=== PATIENT | female | born 1970 | race Caucasian/White ===

== ENCOUNTER → 2019-08-24 10:46 | Outpatient (CLI) | payer BC, SELFPAY ==
--- NOTE | ~2019-08-24 | MR_ITS ---
EXAMINATION: MR cervical spine wo con DATE: 08/24/2019 11:37 INDICATION: Cervical radiculopathy. TECHNIQUE: Magnetic resonance imaging (MRI) of the cervical spine was performed without intravenous c ontrast. Sequences included sagittal T2-weighted FSE, sagittal T2-weighted FS FSE, sagittal T1-weight ed FSE, axial MERGE, and axial T2-weighted FSE. COMPARISON: Cervical spine MRI 04/13/2012 FINDINGS: There is kyphosis of cervical spine. There is 2 mm retrolisthesis of C4 on C5. Vertebral boni dy heights are normal. There is a hemangioma in T2 vertebral body. There is moderately decreased disc height at C4-C5 and severely decreased disc height at C5-C6 and C6-C7. The spinal cord signal intens ity is normal. The following disc levels are specifically discussed: C2-C3: The disc does not extend beyond the endplate margin. There is mild left uncovertebral joint os teoarthritis. There is mild bilateral facet joint osteoarthritis. There is mild left neural foraminal stenosis. There is no central canal stenosis. C3-C4: The disc does not extend beyond the endplate margin. There is mild bilateral uncovertebral campbell nt osteoarthritis. There is no facet joint osteoarthritis. There is no neural foraminal stenosis. The re is no central canal stenosis. C4-C5: The disc is bulging. There is severe bilateral uncovertebral joint osteoarthritis. There is no facet joint osteoarthritis. There is moderate right and mild left neural foraminal stenosis. There i s mild central canal stenosis. C5-C6: The disc is bulging. There is severe bilateral uncovertebral joint osteoarthritis. There is mi ld right and moderate left facet joint osteoarthritis. There is mild right and moderate left neural f oraminal stenosis. There is mild central canal stenosis. C6-C7: The disc is bulging. There is severe bilateral uncovertebral joint osteoarthritis. There is mi ld bilateral facet joint osteoarthritis. There is mild bilateral neural foraminal stenosis. There is mild central canal stenosis. C7-T1: There is a left central extrusion. There is no uncovertebral joint osteoarthritis. There is mi ld bilateral facet joint osteoarthritis. There is no neural foraminal stenosis. There is mild central canal stenosis. IMPRESSION: 1. Severe cervical spondylosis, worsened from 04/13/2012. Reviewed, dictated and finalized at location A.
== END ==
PROVIDERS: Visit Provider Nurse Practitioner Family
DX: M47.22 Other spondylosis with radiculopathy, cervical region (principal)
CPT/HCPCS: 72141

== ENCOUNTER 2020-05-21 13:36 | Inpatient (IN) | payer SELFPAY ==
[2020-05-21] VITALS (11 sets, daily range): BP systolic 104–132; BP diastolic 56–81; PULSE 97–115; RESP 13–22; TEMP 36.7–37.1; O2SAT 94–100; BMI 30.6
--- NOTE | ~2020-05-21 | XR_ITS ---
EXAMINATION: XR chest 1V portable DATE: 05/21/2020 14:07 INDICATION: Transient alteration of awareness. TECHNIQUE: A single frontal view of the chest was obtained. COMPARISON: None. FINDINGS: A calcified left lung nodule is consistent with old granulomatous disease. No pleural effus ion or pneumothorax. The heart size is normal. IMPRESSION: 1. No acute cardiopulmonary disease. Reviewed, dictated and finalized at location A.
--- NOTE | 2020-05-21 13:45 | PC.NURSE ---
Per [place] - pharmacist w/ poison control, the peak for the consumed medication is quick, and should be past. Pt drowsy, alert to verbal stimuli. Answers questions appropriately. Per Poison control, watch blood pressure, monitor vitals, this requires symptomatic and supportive care. Will call back to ck on pt, no sheets of information provided at this time.
--- NOTE | 2020-05-21 13:46 | ECG_ITS ---
Measurements Intervals [place] Rate: 108 P: 52 IA: 144 QRS: 48 QRSD: 98 T: 71 QT: 346 QTc: 465 Interpretive Statements SINUS TACHYCARDIA NONSPECIFIC T-WAVE ABNORMALITY- ANT/HIGH LAT LEADS BASELINE ARTIFACT- I, II, III, AVR, AVL, AVF, V1-V6 ABNORMAL ECG Electronically Signed On 05-21-2020 14:18:24 CDT by Donny Dominguez D.O.
--- NOTE | 2020-05-21 13:48 | ED.OVERDOSE ---
HPI - Overdose General Chief Complaint: Overdose Stated Complaint: overdose Source: family, EMS and RN notes reviewed Mode of arrival: EMS History of Present Illness HPI Narrative: Patient is 50 years old white female brought to the emergency room by ambulance because of drug overdose. According to the family that the patient been complaining of major depression lately and her wishes to . This morning was doing okay, within 1 hour prior to arrival to the emergency room. Patient took unknown number of pills from 90 pills bottle of Requip, Patient should have 57 pills in the bottle but currently have 74 pills . Obviously patient does not take her medication, and if she did not have any pill since had her prescription done ,the total number of pills been taking today will be 16 pills maximum. Patient was awake when the ambulance arrived to her house, currently is sleepy, and responding to painful stimulation. Related Data Allergies Allergy/AdvReac Type Severity Reaction Status Date / Time No Known Allergies Allergy Verified 10/01/17 08:37 Review of Systems Review of Systems: ROS unobtainable: Yes unobtainable due to medical condition PMFSH Social History Social History Substance use type: painkillers and prescription drug Gender identity (if verbalized by the patient): Female Exam Narrative: Exam Narrative: General appearance: Well-developed, well-nourished, sleepy, responding to painful stimulation, at the bedside Skin: Normal color Head: Normocephalic, nontraumatic Eyes: Clear conjunctiva ENT: Oropharynx normal, ears normal, nose normal Neck: Supple, nontender Chest and respiratory: Airway patent, no respiratory distress, no accessory muscle use Heart: Regular rate/rhythm Abdomen: Soft, nontender, no organomegaly, quiet bowel sounds Vascular: Normal peripheral pulses, normal capillary refill. Musculoskeletal: Normal range of motion, nontender back Neurologic: Responding to painful stimulation Course Course Emergency Course: Stable Vital Signs Vital signs: Vital Signs Respiratory Rate 14 05/21/20 13:48 Temperature 36.7 C 05/21/20 14:16 Pulse Rate 103 H 05/21/20 15:00 Respiratory Rate 21 H 05/21/20 15:00 Blood Pressure 127/80 05/21/20 15:00 Pulse Oximetry 94 05/21/20 15:00 MDM - Overdose MDM Narrative Medical decision making narrative: Patient presents with suicidal attempt, drug overdose. Labs, chest x-ray, EKG ordered. Further plan to follow Differential Diagnosis Differential diagnosis: Likely suicide attempt by multiple drug overdose, drug overdose and other (Major depression) Lab Data Result diagrams: 05/21/20 14:06 05/21/20 14:06 Labs: Lab Results 05/21/20 05/21/20 05/21/20 Range/Units 14:06 14:06 14:06 WBC 5.8 (4.5-10.0) K/mm3 RBC 4.43 (4.2-5.4) M/mm3 Hgb 13.3 (12.0-15.0) g/dL Hct 40.2 (37.0-47.0) % MCV 90.7 (80-100) fl MCH 30.0 (26-34) pg MCHC 33.1 (32-36) g/dl RDW 12.9 (11.5-14.5) % Plt Count 301 (150-375) k/mm3 MPV 9.7 (7.4-10.4) fl Immature Gran % (Auto) 0.5 (0-0.5) % Neut % (Auto) 57.8 (45.5-73.1) % Lymph % (Auto) 31.1 (18.3-44.2) % [place] % (Auto) 8.0 (2.6-8.5) % Eos % (Auto) 1.0 (0-4.4) % Baso % (Auto) 1.6 H (0.2-1.2) % Lymph # (Auto) 1.79 (0.9-3.2) K/mm3 [place] # (Auto) 0.5 (0.1-0.6) K/mm3 Eos # (Auto) 0.1 (0-0.3) K/mm3 Baso # (Auto) 0.1 (0.0-0.1) K/mm3 Abs Immat Gran (auto) 0.03 (0.00-0.031) K/mm3 Absolute Neuts (auto) 3.3 (1.3-6.7) K/mm3 Absolute Nucleated RBC 0.0 (0.0-0.012) K/mm3
[2020-05-21] MEDS: SODIUM CHLORIDE 0.9% IV 1,000 ML 999 ML IV CONT ×2 (13:53→15:52)
[2020-05-21 14:03] LABS: Alveolar/Arterial O2 Gradient 27.1 mmHg; Base Excess ABG 1.8 mEq/l (+/-2.0); Fractional Inspired Oxygen 21 %; HCO3 ABG 27.4 mEq/l (22.0-26.0); Oxygen Content ABG 18.3 %vol (16.0-22.0); Oxygen Saturation ABG 92.9 % (95.0-100.0); Oxyhemoglobin 92.1 % THb (90.0-100.0); PCO2 ABG 46.8 mmHg (35.0-45.0); PO2 ABG 66.6 mmHg (80.0-100.0); PO2 FiO2 Ratio Arterial Blood 3.17 %; Total Hemoglobin 14.1 g/dL (12.0-18.0); pH ABG 7.386 (7.350-7.450)
[2020-05-21 14:04] LABS: Device ROOM AIR; Modified Allen's Test Pass; Site Drawn LEFT RADIAL
[2020-05-21 14:25] LABS: Basophils Absolute Auto 0.1 K/mm3 (0.0-0.1); Basophils Percent Auto 1.6 % (0.2-1.2); Eosinophils Absolute Auto 0.1 K/mm3 (0-0.3); Hematocrit 40.2 % (37.0-47.0); Hemoglobin 13.3 g/dL (12.0-15.0); Immature Granulocyte Absolute 0.03 K/mm3 (0.00-0.031); Immature Granulocyte Percent A 0.5 % (0-0.5); Lymphocytes Absolute Auto 1.79 K/mm3 (0.9-3.2); Lymphocytes Percent Auto 31.1 % (18.3-44.2); Mean Corpuscular HGB Conc 33.1 g/dl (32-36); Mean Corpuscular Volume 90.7 fl (80-100); Mean Platelet Volume 9.7 fl (7.4-10.4); Monocytes Absolute Auto 0.5 K/mm3 (0.1-0.6); Neutrophils Absolute Auto 3.3 K/mm3 (1.3-6.7); Neutrophils Percent Auto 57.8 % (45.5-73.1); Platelet Count Result 301 k/mm3 (150-375); Red Blood Count 4.43 M/mm3 (4.2-5.4); Red Cell Distribution Width 12.9 % (11.5-14.5); White Blood Count 5.8 K/mm3 (4.5-10.0)
[2020-05-21 14:36] LABS: Acetaminophen < 10 ug/mL (10-30); Ethanol 168 mg/dL (<10); Salicylate < 1.0 mg/dL (2-20)
[2020-05-21 14:41] LABS: INR 0.9
[2020-05-21 14:42] LABS: Partial Thromboplastin Time 26.7 SECONDS (22.3-36.8)
[2020-05-21 14:49] LABS: Alanine Aminotransferase 16 U/L (4-35); Alkaline Phosphatase 59 U/L (38-126); Anion Gap 5 mmol/L (8-16); Aspartate Amino Transferase 34 U/L (14-36); Bilirubin,Total < 0.1 mg/dL (0.2-1.3); Blood Urea Nitrogen 9 mg/dL (7-17); Calcium 8.3 mg/dL (8.4-10.2); Carbon Dioxide 34 mmol/L (22-30); Chloride 106 mmol/L (98-107); Estimated CRCL calculation 57 ml/min; Estimated Glomerular Filt Rate 58; Glucose 61 mg/dL (65-105); Magnesium 1.5 mg/dL (1.6-2.3); Phosphorus 1.8 mg/dL (2.5-4.5); Potassium 3.1 mmol/L (3.4-5.0); Sodium 145 mmol/L (137-145)
[2020-05-21 14:54] LABS: Add Urine Microscopic? NO; Appearance Urine Clear (Clear); Bilirubin Urine Negative (Negative); Blood Urine Negative (Negative); Color Urine Yellow (Yellow); Glucose Urine UA Negative (Negative); Ketones Urine Negative (Negative); Leukocyte Esterase Ur Negative LEU/UL (Negative); Nitrate Urine Negative (Negative); Protein Urine Negative (Negative); Specific Grav Ur 1.009 (1.001-1.035); Urobilinogen Urine Negative mg/dL (<2.0)
[2020-05-21 15:00] LABS: Creatine Kinase 259 U/L (30-135)
[2020-05-21 15:10] LABS: Amphetamine Screen Urine Negative (Negative); Barbiturate Screen Urine Negative (Negative); Benzodiazepines Screen Urine Negative (Negative); Cannabinoid Screen Urine Negative (Negative); Cocaine Screen Urine Negative (Negative); Methadone Screen Urine Negative (Negative); Opiate Screen Urine Negative (Negative); Phencyclidine Screen Urine Negative (Negative)
[2020-05-21] MEDS: POTASSIUM CHLORIDE 20 MEQ PACKET (FOR LIQUID) 40 MEQ PO (15:53)
--- NOTE | 2020-05-21 16:09 | PC.NURSE ---
Received call from Anai from poison control requesting update. Reviewed EKG, medications given, and VS.
[2020-05-21 16:39] LABS: Glucose Point of Care 108 (65-105)
[2020-05-21] MEDS: SODIUM CHLORIDE 0.9% IV 1,000 ML 150 ML IV CONT ×2 (17:10→23:57)
--- NOTE | 2020-05-21 17:10 | PC.NURSE ---
This patient, Marcella Loyd, was admitted to Intensive Care Unit-6. Patient/family oriented to hospital policies and general routines including ID bracelet, bed and alarms, visiting hours, pain management, procedures, bathroom and other care routines, personal items, smoking policy, room service/diet, and visiting hours. Information on how to activate the Rapid Response Team has been discussed. Patient/Family are encouraged to report perceived risks to care and to ask questions if they do not understand what they are told or what they should do.
--- NOTE | 2020-05-21 18:16 | PM.IMHP ---
H&P: HPI History of Present Illness Date/Time: 05/21/20 18:16 this is 50-year-old female patient who has a history of depression. The patient recently lost her job and has been very depressed over the situation. The patient stated that she drinks some vodka today and just wanted to take the medication to relax. Her child found her unresponsive today. She Took unknown number Requip. The patient was complaining of depression and was wishing to . Apparently the patient took the overdose approximately 1 hour prior to coming to the emergency room. The patient was awake when the ambulance arrived her house but she is very sleepy and responding to the painful stimuli. Her is currently at the bedside and the patient is in ICU. Tylenol level was less than 10. The patient stated that she takes Ambien to help her sleep at night. But she denies taking any Ambien. She said she only took 1 Lexapro today. The patient tells me that she has not been to any inpatient psychiatric treatment in the past. Chest x-ray was read as no acute cardiopulmonary disease. Patient is being admitted to inpatient ICU date of service is 05/21/2020. Chief Complaint: Overdose Review of Systems Review of Systems: All systems reviewed & are unremarkable except as noted in HPI and below Constitutional: Constitutional: Reports as per HPI and Reports no additional constitutional complaints Eyes: Eyes: Reports as per HPI and Reports no additional eye complaints ENT: Reports system reviewed and no additional complaints, except as documented and Reports Normal hearing present Cardiovascular: Cardiovascular: Reports no additional cardiovascular complaints Respiratory: Respiratory: Reports no additional respiratory complaints and Reports no additional respiratory complaints Gastrointestinal: Gastrointestinal: Reports as per HPI and Reports no additional gastrointestinal complaints Musculoskeletal: Musculoskeletal: Reports no additional musculoskeletal complaints Integumentary/Breasts: Skin/Breast: Reports system reviewed and no additional complaints, except as docu and Reports as per HPI Neurologic: Reports system reviewed and no additional complaints, except as documented, Reports as per HPI and Reports Normal hearing present Psychiatric: Psychiatric: Reports no additional psychiatric complaints and Reports as per HPI Endocrine: Endocrine: Reports no additional endocrine complaints Hematologic/Lymphatic: Hematologic/Lymphatic: Reports no additional hematologic/lymphatic complaints Allergic/Immunologic: Allergic/Immunologic: Reports no additional allergic/immunologic complaints [facility] Past Medical History Medical History (Updated 05/21/20 @ 18:20 by Alee Bains NP) Depression Insomnia Restless leg syndrome Surgical History Surgical History (Updated 05/21/20 @ 18:20 by Alee Bains NP) No pertinent past surgical history Family History Family History (Updated 05/21/20 @ 18:21 by Alee Bains NP) Father Osteoarthritis Mother Osteoarthritis Social History Social History (Updated 05/21/20 @ 18:22 by Alee Bains NP) Social History: The patient recently lost her job so she is unemployed. The patient is . She desires to have her is a durable power attorney general for healthcare. The patient is a full code. She has 2 children appoint a girl. Lifelong nonsmoker. The patient states that she rarely drinks but she had some vodka today. No marijuana or illicit drug. She tried CBD in the past and does nothing for her. Smoking status: Never smoker Alcohol intake: current Substance use type: painkillers and prescription drug Other substance usage details: RSO oil Gender identity (if verbalized by the patient): Female Spiritual care concerns: No Meds Home Medications and Allergies Home Medications Medication Instructions Recorded Confirmed Type amitriptyline 100 mg PO HS 05/21/20 05/21/20 Hi
[2020-05-22] VITALS (7 sets, daily range): BP systolic 117–164; BP diastolic 67–101; PULSE 103–118; RESP 11–22; TEMP 36.8–37.1; O2SAT 96–99
[2020-05-22 00:03] LABS: Glucose Point of Care 97 (65-105)
[2020-05-22 05:12] LABS: Alanine Aminotransferase 15 U/L (4-35); Albumin Level 3.1 g/dL (3.5-5.1); Alkaline Phosphatase 51 U/L (38-126); Anion Gap 2 mmol/L (8-16); Aspartate Amino Transferase 32 U/L (14-36); Bilirubin,Total 0.1 mg/dL (0.2-1.3); Blood Urea Nitrogen 13 mg/dL (7-17); Calcium 7.8 mg/dL (8.4-10.2); Carbon Dioxide 28 mmol/L (22-30); Chloride 111 mmol/L (98-107); Estimated CRCL calculation 64 ml/min; Estimated Glomerular Filt Rate > 60; Glucose 88 mg/dL (65-105); Magnesium 1.5 mg/dL (1.6-2.3); Potassium 3.6 mmol/L (3.4-5.0); Sodium 141 mmol/L (137-145)
[2020-05-22 05:14] LABS: Lactic Acid Reflex 0.8 mmol/L (0.7-2.1)
[2020-05-22 05:47] LABS: Glucose Point of Care 87 (65-105)
[2020-05-22] MEDS: SODIUM CHLORIDE 0.9% IV 1,000 ML 150 ML IV CONT (05:49)
[2020-05-22 07:53] LABS: Ethanol < 10 mg/dL (<10)
[2020-05-22] MEDS: MAGNESIUM SULF 2 GM/WATER 50ML 2 GM/50 ML BAG IVPB (08:12)
--- NOTE | 2020-05-22 08:44 | WPDCNINT ---
Assessment and Plan Assessment and plan (1) Drug overdose: Qualifiers: Encounter type: initial encounter Injury intent: intentional self-harm Qualified Code(s): T50.902A - Poisoning by unspecified drugs, medicaments and biological substances, intentional self-harm, initial encounter Code(s): T50.901A - Poisoning by unspecified drugs, medicaments and biological substances, accidental (unintentional), initial encounter Status: Acute Assessment and Plan: Patient with possible Requip overdose, unknown amount -poison control was notified from the ER -patient was initially somnolent but awake and alert this morning (2) Suicidal behavior: Code(s): R45.89 - Other symptoms and signs involving emotional state Status: Acute Assessment and Plan: According the records patient's family did stated that she was suicidal -patient this morning denies any suicidal behavior or intent -currently medically stable -continue suicidal precautions -sitter at bedside -will have care coordination and crisis management evaluate the patient (3) Alcohol abuse: Code(s): F10.10 - Alcohol abuse, uncomplicated Status: Acute Assessment and Plan: Alcohol intoxication with elevated alcohol levels on admission -repeat alcohol levels <10 this morning (4) Hypokalemia: Code(s): E87.6 - Hypokalemia Status: Acute Assessment and Plan: Potassium was replaced -will replace magnesium (5) Depression: Code(s): F32.9 - Major depressive disorder, single episode, unspecified Status: Chronic Assessment and Plan: Patient with history of depression on escitalopram and amitriptyline at home -patient will require psychiatry treatment at the [facility] Additional Plan Code status: Full code Critical care time spent: 38 minutes This dictation may have been done utilizing a voice recognition system. Attempts have been made to correct errors. However, there may be uncorrected grammatical, spelling, and recognition errors present. Due to a high probability of clinically significant, life threatening deterioration, the patient required my highest level of preparedness to intervene emergently and I personally spent this critical care time directly and personally managing the patient. This critical care time included obtaining a history; examining the patient; pulse oximetry; ordering and review of studies; arranging urgent treatment with development of a management plan; evaluation of patient's response to treatment; frequent reassessment; and discussions with other providers. It was exclusive of separately billable procedures and treating other patients and teaching time. Please see Assessment and Plan section and the rest of the note for further information on patient assessment and treatment Video Conference Specialist Consult Note Consult date: 05/22/20 Time Seen: 07:03 Reason for consult: Overdose, altered mental status, alcohol intoxication HPI: Marcella Loyd is a 50 year old female with significant past medical history of depression presented to the ED on 05/21/2020 via EMS for drug overdose. According the ER and hospitalist nods patient has been complaining of major depression lately and no wishes to end her life because she recently lost her job. Patient took an unknown amount of Requip 1 hour prior to arrival to the emergency room. Patient should have had 74 pills in the bottle but they were only 57 pills in the bottle. Patient also drink alcohol of unknown amount. Patient was drowsy in the ER, poison control was notified and patient was placed in the ICU for further management Patient seen and examined this morning in the ICU,, alert, oriented. Answers to questions appropriately and moves all extremities. Patient is hemodynamically stable, urine output has been adequate. Patient is on room air with adequate O2 sats. Patient denies overdose, denies suicidal ideation or attempt. D
--- NOTE | 2020-05-22 10:25 | PM.IMPN ---
Progress Note: A&P Assessment and Plan (1) Suicide attempt by multiple drug overdose: Qualifiers: Encounter type: initial encounter Qualified Code(s): T50.912A - Poisoning by multiple unspecified drugs, medicaments and biological substances, intentional self-harm, initial encounter Code(s): T50.912A - Poisoning by multiple unspecified drugs, medicaments and biological substances, intentional self-harm, initial encounter Status: Acute Assessment and Plan: Patient will be referred to psychiatric care whether it is inpatient or outpatient. 05/22/20 10:25 patient is a 50-year-old female with history of depression and suicidal ideation apparently patient was quite under stress as she had lost her job and felt worse, patient took extra dose of Requip, and drank alcohol later she was found unresponsive by her son and patient was brought to the ER by EMS, poison controlled was called and patient was monitor in ICU, today patient denies any intent to harm herself, and denies any suicidal ideation, patient is clinically stable, alert and oriented x3, and want to go home. Patient was seen by floor helper evaluated the patient and she is medically stable and I agree, will have crisis team evaluate the patient and further recommendation to follow. (2) Drug overdose: Qualifiers: Encounter type: initial encounter Injury intent: intentional self-harm Qualified Code(s): T50.902A - Poisoning by unspecified drugs, medicaments and biological substances, intentional self-harm, initial encounter Code(s): T50.901A - Poisoning by unspecified drugs, medicaments and biological substances, accidental (unintentional), initial encounter Status: Acute Assessment and Plan: The patient took unknown amounts of Requip. The patient is requesting Ambien and I denied her any further medications. I explained that she needed to let the medications that she took wash out of her system. Patient is on suicide precautions. I explained to the patient that she would need to be evaluated by [facility] and that she would not be able to leave on her own at this time. (3) Restless leg syndrome: Code(s): G25.81 - Restless legs syndrome Status: Chronic Assessment and Plan: The patient took too much Requip. Continue with IV fluids and will to continue monitor (4) Depression: Code(s): F32.9 - Major depressive disorder, single episode, unspecified Status: Chronic Assessment and Plan: [facility] consultation greatly be appreciated. Patient had been on Lexapro and needs to be re-evaluated for her uncontrolled depression. Subjective Date/time seen: 05/22/20 10:25 patient is a 50-year-old female with history of depression and suicidal ideation apparently patient was quite under stress as she had lost her job and felt worse, patient took extra dose of Requip, and drank alcohol later she was found unresponsive by her son and patient was brought to the ER by EMS, poison controlled was called and patient was monitor in ICU, today patient denies any intent to harm herself, and denies any suicidal ideation, patient is clinically stable, alert and oriented x3, and want to go home. Patient was seen by floor helper evaluated the patient and she is medically stable and I agree, will have crisis team evaluate the patient and further recommendation to follow. Review of Systems Review of Systems: All systems reviewed & are unremarkable except as noted in HPI and below Exam Narrative: Exam Narrative: Patient is comfortable, NAD HEENT: eyes are clear and none icteric LUNGS:CTA HEART: RR S1S2 ABD: BS+, Soft and nontender Lower extremities: no edema SKIN: nonjaundiced Neuro: grossly intact. Objective Data Vital Signs Vital Signs: Vital Signs - 24 hr 05/21/20 13:48 05/21/20 14:16 05/21/20 15:00 Temperature 98.0 F Pulse Rate 105 H 103 H Pulse Rate [Monitor] Respiratory Rate 14 20 21 H Blood P
--- NOTE | 2020-05-22 12:23 | PM.DS ---
DS: Admitting Diagnosis Admitting Diagnosis Admitting Diagnosis: Chief Complaint: Overdose DS: Discharge Diagnosis Discharge Diagnosis (1) Suicide attempt by multiple drug overdose: Qualifiers: Encounter type: initial encounter Qualified Code(s): T50.912A - Poisoning by multiple unspecified drugs, medicaments and biological substances, intentional self-harm, initial encounter Code(s): T50.912A - Poisoning by multiple unspecified drugs, medicaments and biological substances, intentional self-harm, initial encounter Status: Acute Assessment and Plan: Patient will be referred to psychiatric care whether it is inpatient or outpatient. 05/22/20 10:25 patient is a 50-year-old female with history of depression and suicidal ideation apparently patient was quite under stress as she had lost her job and felt worse, patient took extra dose of Requip, and drank alcohol later she was found unresponsive by her son and patient was brought to the ER by EMS, poison controlled was called and patient was monitor in ICU, today patient denies any intent to harm herself, and denies any suicidal ideation, patient is clinically stable, alert and oriented x3, and want to go home. 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 (2) Drug overdose: Qualifiers: Encounter type: initial encounter Injury intent: intentional self-harm Qualified Code(s): T50.902A - Poisoning by unspecified drugs, medicaments and biological substances, intentional self-harm, initial encounter Code(s): T50.901A - Poisoning by unspecified drugs, medicaments and biological substances, accidental (unintentional), initial encounter Status: Acute Assessment and Plan: The patient took unknown amounts of Requip. The patient is requesting Ambien and I denied her any further medications. I explained that she needed to let the medications that she took wash out of her system. Patient is on suicide precautions. I explained to the patient that she would need to be evaluated by [facility] and that she would not be able to leave on her own at this time. (3) Restless leg syndrome: Code(s): G25.81 - Restless legs syndrome Status: Chronic Assessment and Plan: The patient took too much Requip. Continue with IV fluids and will to continue monitor (4) Depression: Code(s): F32.9 - Major depressive disorder, single episode, unspecified Status: Chronic Assessment and Plan: [facility] consultation greatly be appreciated. Patient had been on Lexapro and needs to be re-evaluated for her uncontrolled depression. DS: Summary Hospital Course Reason for hospitalization: this is 50-year-old female patient who has a history of depression. The patient recently lost her job and has been very depressed over the situation. The patient stated that she drinks some vodka today and just wanted to take the medication to relax. Her child found her unresponsive today. She Took unknown number Requip. The patient was complaining of depression and was wishing to . Apparently the patient took the overdose approximately 1 hour prior to coming to the emergency room. The patient was awake when the ambulance arrived her house but she is very sleepy and responding to the painful stimuli. Her is currently at the bedside and the patient is in ICU. Tylenol level was less than 10. The patient stated that she takes Ambien to help her sleep at night. But she denies taking any Ambien. She said she only took 1 Lexapro today. The patient tells me that she has not been to any inpatient psychiatric treatment in the past. Chest x-ray was read as no acute cardiopulmonary disease. Patient is being admitted to inpatient ICU date of service is 05/21/2020. Chief Complaint: Overdose Hospital Course: patient is a 50-year-
[2020-05-22 21:08] LABS: SARS-CoV-2 RNA PCR Negative
== END 2020-05-22 13:02 | disposition home or self-care (01) | DRG 817 ==
LOC: ANHED 15:33 → ANHICU 05-22 12:23
PROVIDERS: Internal Medicine; Nurse Practitioner; Admitting Provider Internal Medicine; Emergency Provider Emergency Medicine; PCP Emergency Medicine; Visit Provider Family Medicine
DX: T42.8X2A Poisoning by antiparkinsonism drugs and other central muscle-tone depressants, intentional self-harm, initial encounter (principal); F10.129 Alcohol abuse with intoxication, unspecified; Y90.9 Presence of alcohol in blood, level not specified; G25.81 Restless legs syndrome; F32.9 Major depressive disorder, single episode, unspecified; G47.00 Insomnia, unspecified; E87.6 Hypokalemia; Z20.822 Contact with and (suspected) exposure to COVID-19; Z79.899 Other long term (current) drug therapy
CPT/HCPCS: 36415; 36600; 51701; 71045; 80053; 80307; 81003; 82550; 82805; 82948; 83605; 83735; 84100; 84443; 85025; 85610; 85730; 93005; 96360; 99285; A9270; C9803; J3475; J7030; U0003; U0005

== ENCOUNTER 2020-05-23 16:07 | Outpatient (CLI) | payer OTHER, SELFPAY | END 2020-05-23 16:08 | disposition home or self-care (01) | PROVIDERS: PCP Emergency Medicine | DX: Z23 Encounter for immunization (principal) | CPT/HCPCS: 0001A; 91300 ==

== ENCOUNTER 2020-06-13 17:22 | Outpatient (CLI) | payer OTHER, SELFPAY | END 2020-06-13 17:23 | disposition home or self-care (01) | PROVIDERS: PCP Emergency Medicine | DX: Z23 Encounter for immunization (principal) | CPT/HCPCS: 0002A; 91300 ==

== ENCOUNTER → 2020-07-24 11:50 | Outpatient (CLI) | payer BC, SELFPAY ==
--- NOTE | ~2020-07-24 | XR_ITS ---
XR elbow RT min 3V DATE: 07/24/2020 12:38 INDICATION: Right elbow pain TECHNIQUE: 4 views COMPARISON: None FINDINGS: No fracture or dislocation or joint effusion. No periosteal reaction or bone destruction. IMPRESSION: No significant abnormality Reviewed, dictated and finalized at location A. IMPRESSION: No significant abnormality
--- NOTE | ~2020-07-24 | XR_ITS ---
XR forearm RT 2V DATE: 07/24/2020 12:37 INDICATION: Forearm pain TECHNIQUE: 3 views COMPARISON: None FINDINGS: No fracture, dislocation, periosteal reaction or bone destruction. Normal alignment at the elbow and wrist joints. IMPRESSION: No significant abnormality Reviewed, dictated and finalized at location A. IMPRESSION: No significant abnormality
== END ==
PROVIDERS: PCP Emergency Medicine; Visit Provider Nurse Practitioner Adult Health
DX: M79.639 Pain in unspecified forearm (principal); M25.521 Pain in right elbow
CPT/HCPCS: 73080; 73090

== ENCOUNTER 2020-10-26 07:10 | Outpatient (CLI) | payer BC, SELFPAY ==
--- NOTE | ~2020-10-26 | US_ITS ---
EXAMINATION: US venous doppler [facility] DATE: 10/26/2020 07:52 INDICATION: Left lower limb pain TECHNIQUE: Ayala scale images without and with compression and Doppler images of the left lower extrem ity veins were obtained. COMPARISON: None FINDINGS: A 4.4 x 0.7 x 2.4 cm Medina's cyst is noted. The left common femoral vein, profunda femoral vein, femoral vein, popliteal vein, peroneal trunk, posterior tibial veins, and greater saphenous vei n are patent. IMPRESSION: 1. Patent left lower extremity veins. No evidence of deep venous thrombosis. 2. Medina's cyst. Reviewed, dictated and finalized at location A.
== END 2020-10-26 07:11 | disposition home or self-care (01) ==
PROVIDERS: PCP Emergency Medicine; Visit Provider Emergency Medicine
DX: M71.22 Synovial cyst of popliteal space [Baker], left knee (principal)
CPT/HCPCS: 93971

== ENCOUNTER → 2020-11-15 16:34 | Outpatient (CLI) | payer BC, SELFPAY ==
--- NOTE | ~2020-11-15 | MM_ITS ---
EXAMINATION: MM screening narayan BI w ritchie HISTORY: Screening mammogram TECHNIQUE: Craniocaudal and mediolateral oblique 3-D tomosynthesis images were obtained and synthetic 2-D images were generated. CAD analysis was submitted and interpreted. COMPARISON: 12/02 2018, 09/07/2017, 08/19/2016 bilateral digital screening mammogram examinations BREAST PARENCHYMAL COMPOSITION: There are scattered areas of fibroglandular density. FINDINGS: There is no evidence of suspicious mass, calcification, or architectural distortion to sugg est malignancy in either breast. There has been no suspicious interval change. IMPRESSION: 1. No mammographic evidence of malignancy. 2. Recommend routine screening mammography in one year. BI-RADS Category 1: Negative Reviewed, dictated and finalized at location A.
== END ==
PROVIDERS: PCP Emergency Medicine; Visit Provider Obstetrics & Gynecology
DX: Z12.31 Encounter for screening mammogram for malignant neoplasm of breast (principal)
CPT/HCPCS: 77063; 77067

== ENCOUNTER → 2021-07-18 09:54 | Outpatient (CLI) | payer BC, SELFPAY ==
--- NOTE | ~2021-07-18 | DEXA_ITS ---
Bone Density Report Name: CARLINE FIGUEROA Age: 51 Sex: Female Ethnicity: White Date of : 1970 Indication: postmenopausal; screening for osteoporosis; prior fracture; Referring Provider: TIEN SIDDIQUI Study: Bone densitometry was performed. Exam Date: July 18, 2021 Accession number: [id number] Bone Density: Region BMD T-score Z-score Classification AP Spine (L1-L4) 0.883 -1.5 -0.5 Osteopenia Femoral Neck (Left) 0.625 -2.0 -1.1 Osteopenia Total Hip (Left) 0.790 -1.2 -0.6 Osteopenia Femoral Neck (Right) 0.576 -2.5 -1.5 Osteoporosis Total Hip (Right) 0.786 -1.3 -0.7 Osteopenia Total Hip Mean 0.788 -1.3 -0.7 Osteopenia World Health Organization criteria for BMD impression classify patients as: Normal (T-score at or above -1.0), Osteopenia (T-score between -1.0 and -2.5), or Osteoporosis (T-score at or below -2.5). 10-year Fracture Risk: FRAX not reported because: Some T-score for Spine Total or Hip Total or Femoral Neck at or below -2.5 Clinical Information Provided by Patient: Has had a low trauma fracture Has used the following medications: Vitamin D, Calcium Patient maximum height was 63 Menopause Age: 51 No regular weight bearing exercise Does not regularly consume dairy products Drinks caffeinated beverages Onset of menses at age 8 Number of children 2 Impression: The patient has established osteoporosis, based on the Right Femoral Neck T-score and the existence of a prior fracture. The patient has risk factors, including: previous fracture. Discussion: HIGH RISK OF FRACTURE. BONE DENSITY IS UNDESIRABLY LOW AT ONE OR MORE SKELETAL SITES, CONSISTENT WITH POSTMENOPAUSAL OSTEOPOROSIS. This patient's lowest T-score, in a patient who has previously fractured, meets the World Health Organization's (WHO) criteria for severe osteoporosis. In untreated patients, the risk of osteoporotic fracture increases approximately two-fold for each 1.0 SD decrease in T-score. Low bone density is not the only risk factor for fracture; also consider factors such as patient's age, frailty or poor health, risk of falling, risk of injury, previous osteoporotic fracture, family history of osteoporosis, cigarette smoking, low body weight, etc. Not everyone with low bone mineral density has osteoporosis; osteomalacia and other metabolic bone disorders should also be considered. Patients who have osteoporosis should be evaluated for specific diseases and conditions (secondary causes) that may cause or contribute to bone loss. The [place] Association [employer] Clinical Endocrinologists (AACE) and National Osteoporosis Foundation (NOF) recommend pharmacologic intervention for all postmenopausal women whose T-score is in this range. The patient should follow a healthful lifestyle (good nutrition with adequate calcium and vitamin D, and approp
== END ==
PROVIDERS: PCP Emergency Medicine; Visit Provider Emergency Medicine
DX: Z78.0 Asymptomatic menopausal state (principal); M85.88 Other specified disorders of bone density and structure, other site; M85.852 Other specified disorders of bone density and structure, left thigh; M85.851 Other specified disorders of bone density and structure, right thigh; M81.0 Age-related osteoporosis without current pathological fracture
CPT/HCPCS: 77080

== ENCOUNTER 2022-09-05 11:10 | Outpatient (CLI) | payer OTHER, BC, SELFPAY ==
--- NOTE | ~2022-09-05 | MM_ITS ---
EXAMINATION: MM screening narayan BI w ritchie HISTORY: Screening mammogram TECHNIQUE: Craniocaudal and mediolateral oblique 3-D tomosynthesis images were obtained and synthetic 2-D images were generated. CAD analysis was submitted and interpreted. COMPARISON: 11/15/2020, 11/29/2018, 09/07/2017 bilateral screening mammogram examinations BREAST PARENCHYMAL COMPOSITION: There are scattered areas of fibroglandular density. FINDINGS: There is no evidence of suspicious mass, calcification, or architectural distortion to sugg est malignancy in either breast. There has been no suspicious interval change. IMPRESSION: 1. No mammographic evidence of malignancy. 2. Recommend routine screening mammography in one year. BI-RADS Category 1: Negative........ Reviewed, dictated and finalized at location A.
== END 2022-09-05 11:11 ==
PROVIDERS: PCP Emergency Medicine; Visit Provider Emergency Medicine
DX: Z12.31 Encounter for screening mammogram for malignant neoplasm of breast (principal)
CPT/HCPCS: 77063; 77067

== ENCOUNTER 2023-09-27 15:09 | Outpatient (CLI) | payer OTHER, SELFPAY ==
--- NOTE | ~2023-09-27 | MM_ITS ---
EXAMINATION: MM screening narayan BI w ritchie HISTORY: Screening TECHNIQUE: Craniocaudal and mediolateral oblique 3-D tomosynthesis images were obtained and synthetic 2-D images were generated. CAD analysis was submitted and interpreted. COMPARISON: Comparison to multiple prior studies sequentially, with oldest reviewed study dated 08/05. BREAST PARENCHYMAL COMPOSITION: Not dense: There are scattered areas of fibroglandular density. FINDINGS: There is no evidence of suspicious mass, calcification, or architectural distortion to sugg est malignancy in either breast. There has been no suspicious interval change. IMPRESSION: 1. No mammographic evidence of malignancy. 2. Recommend routine screening mammography in one year. BI-RADS Category 1: Negative Reviewed, dictated and finalized at location B.
== END 2023-09-27 15:10 ==
LOC: MICIMG 15:09
PROVIDERS: PCP Emergency Medicine; Visit Provider Emergency Medicine
DX: Z12.31 Encounter for screening mammogram for malignant neoplasm of breast (principal)
CPT/HCPCS: 77063; 77067

== ENCOUNTER 2024-08-18 12:40 | Emergency (ER) | payer OTHER, SELFPAY ==
[2024-08-18] VITALS (33 sets, daily range): BP systolic 96–152; BP diastolic 63–94; PULSE 75–111; RESP 11–27; TEMP 36.6; O2SAT 96–100
--- NOTE | 2024-08-18 12:36 | PC.NURSE ---
operator receptionist at bedside due to pt being in restraints and unknown if the pt was trying to overdose on purpose
--- NOTE | 2024-08-18 12:36 | PC.NURSE ---
pt arrived to ED and was yelling at staff, trying to hit and kick. EDP gave verbal order for hard restraints
[2024-08-18 13:17] LABS: BEDSIDEPREGUCG Negative (Negative)
[2024-08-18 13:21] LABS: Add Urine Microscopic? NO; Appearance Urine Clear (Clear); Glucose Urine UA Negative (Negative); Leukocyte Esterase Ur Negative LEU/UL (Negative); Nitrate Urine Negative (Negative); Specific Grav Ur 1.011 (1.001-1.035)
--- OUTSIDE RECORDS SUMMARY | 2024-08-18 13:22 | XMS_ITS | Patient Health Record ---
Author Organization [facility] Info Assembly Address [address] [facility] [address] [place] [address] Care Team Providers Care Tape Deck Installer Name Role Phone Ant Michele Unavailable [phone] Reason For Referral No Information Plan Of Treatment No Information
--- OUTSIDE RECORDS SUMMARY | 2024-08-18 13:22 | XMS_ITS | Clinical Summary ---
Author Organization [facility] at [facility] Office Center Address [address] [place] [address] Care Team Providers Care Superintendent [employer] Name Role Phone Eliseo Leslie MD Primary Care Provider + [phone] Allergies No known active allergies Medications amitriptyline (ELAVIL) 50 mg tablet Take by mouth nightly Active amoxicillin (AMOXIL) 875 mg tablet Take 1 tablet (875 mg total) by mouth 2 (two) times a day 4 Active betamethasone, augmented, (DIPROLENE AF) 0.05 % cream 4 Active buprenorphine (Butrans) 7.5 mcg/hour 1 patch to skin Transdermal Active diclofenac DR (VOLTAREN) 75 mg EC tablet Take 1 tablet (75 mg total) by mouth 2 (two) times a day 3 Active escitalopram (LEXAPRO) 10 mg tablet Take 1 tablet (10 mg total) by mouth daily Active escitalopram (LEXAPRO) 20 mg tablet Take 1 tablet (20 mg total) by mouth daily Active hydrOXYzine (VistariL) 25 mg capsule 1-2 capsule as needed Orally once daily as needed for anxiety for 14 days Active rOPINIRole (REQUIP) 1 mg tablet Take 1 tablet (1 mg total) by mouth nightly 4 Active propranoloL (INDERAL) 20 mg tablet TAKE 1 TABLET BY MOUTH EVERY DAY for 90 Active rOPINIRole (REQUIP) 2 mg tablet 3 Active zolpidem (AMBIEN) 10 mg tablet Take by mouth nightly as needed Active ergocalciferol (VITAMIN D) 50,000 unit capsule Take one capsule 2 times a week for 4 weeks 8 capsule Active mv-min/folic/vit K/lycop/coQ10 (DAILY MULTIVITAMIN ORAL) Take by mouth Active Active Problems Problem Noted Date Diagnosed Date Screening for malignant neoplasm of colon 2023 Menopause 04/30/2023 Osteopenia of multiple sites 04/29/2023 Encounters Date Type Department Care Team Description 08/08/2024 Results Follow-Up [facility] [address] Medicine 5th [place] [address] [place] [address] Tariq Pandya NP Vitamin D 25 hydroxy 08/07/2024 10:45 AM CDT Lab [facility] at [address] [address] Osteopenia of multiple sites 08/07/2024 10:00 AM CDT Office Visit [address] [place] [id number] Earl Olvera MD Osteopenia of multiple sites (Primary Dx); Vitamin D insufficiency 08/07/2024 9:30 AM CDT Clinical Support [address] [place] [id number] Osteopenia of multiple sites 08/07/[address] [place] [id number] Earl Olvera MD from Last 3 Months Family History Medical History Relation Name Comments Osteoporosis Other Broken bones Neg Hx Hip fracture Neg Hx Kyphosis Neg Hx Scoliosis Neg Hx Relation Name Status Comments Other Social History Tobacco Use Types Packs/Day Years Used Date Smoking Tobacco: Never AUDIT-C Answer Date Recorded Q1: How often do you have a drink containing alc ohol? Monthly or less 01/12/2024 Q2: How many drinks containi ng alcohol do you have on a typical day when you are drinking? 1 or 2 01/12/2024 Q3: How often do you have si x or more drinks on one occasion? Never 01/12/2024 Personal Safety Answer Date Recorded Have you ever been in or are you currently in a harmful physical or emotional relationship or is someone making you feel afraid or unsafe? Denies 01/12/2024 Comments No Sex and Gender Information Value Date Recorded Sex Assigned at Not on file Legal Sex Female 3:22 AM SOLAR SYSTEMS DESIGNER Gender Identity Not on file Sexual Orientation Not on file Obstetrics History Last Filed Vital Signs Vital Sign Reading Time Taken Comments Blood Pressure 148/86 01/12/2024 8:50 AM SOLAR SYSTEMS DESIGNER Pulse 80 01/12/2024 8:50 AM SOLAR SYSTEMS DESIGNER Temperature 36.5 C (97.7 F) 01/12/2024 7:43 AM SOLAR SYSTEMS DESIGNER Respiratory Rate 17 01/12/2024 8:50 AM SOLAR SYSTEMS DESIGNER Oxygen Saturation 100% 01/12/2024 8:50 AM SOLAR SYSTEMS DESIGNER Inhaled Oxygen Concentration - - Weight 68.3 kg (150 lb 8.8 oz) 08/07/2024 9:39 A M CDT Height 150.5 cm (4' 11.25) 08/07/2024 9:39 AM C DT Body Mass Index 30.15 08/07/2024 9:39 AM CDT Plan of Treatment Health Maintenance Due Date Last Done Comments Breast Cancer Screening-Mammogram 1970 Cervical Cancer Screening 1970 Depression Screening 1970 Hepatitis C Screening 1970 DTaP/Tdap/Td Vaccine (1 - Tdap) 04/13/1979 Hepatitis B Screening 1986 Regular Well Visit/Exam 18-64 1986 Covid-19 Vaccine ( season) 2023 03/19/2021, 06/13/2020, 05/23/2020 Influenza Vaccine (#1) 2024 7, 02/18/2012 Colon Cancer Screening-Colonoscopy 01/11/2034 01/12/2024 Zoster Vaccine Completed 12/12/2019, 09/22/2019 Colon Cancer Screening-CT Colonography Discontinued 01/12/2024 Colon Cancer Screening-DNA Stool Discontinued 01/12/2024 Colon Cancer Screening-FIT Discontinued 01/12/2024 Colon Cancer Screening-Sigmoidoscopy Discontinued 01/12/2024 Pneumococcal vaccine <65 Aged Out No longer eligible based on patient's age to complete this topic Procedures Procedure Name Priority Date/Time Associated Diagnosis Comments VITAMIN D 25 HYDROXY Routine 08/07/2024 10:20 AM CDT Osteopenia of multiple sites DEXA TBS AXIAL SKELETON BONE DENSITY 1 OR MORE SITES Schedule Routine, Read Routine (OP Routine) 08/07/2024 9:33 AM CDT Osteopenia of multiple sites COLONOSCOPY 01/12/2024 7:38 AM SOLAR SYSTEMS DESIGNER from Last 3 Months or Most Recently Relevant to Health Maintenance Results * Vitamin D 25 hydroxy (08/07/2024 10:20 AM CDT) Vitamin D 25-OH 50 30 - 80 ng/mL Comment:Testing performed by : [facility], [address] [place] [address] Blood 08/07/2024 10:2 0 AM CDT 08/07/2024 10:50 AM CDT us Tariq Pandya NP LAB BLOOD ORDERABLES Final Re sult [facility] [address] Department [place] [address] * Dexa TBS Axial Skeleton Bone Density 1 or more sites (08/07/2024 9:33 AM CDT) Anatomical Region Laterality Modality Wrist, Body N/A Radiographic Eliz ging Narrative 08/07/2024 10:21 AM CDT Patient Name: Marcella Figueroa Date of : 1970 Date of scan: 08/07/2024 Bone mineral density was performed on a [employer] Discovery Densitometer. Based on machine cross-calibration and precision studies the least significant changes of this densitometer is 0.024 g/cm2 at the spine, 0.020 g/cm2 at the total proximal femur, and 0.014g/cm2 at the forearm. HISTORY: This is a 54 y.o. postmenopausal female with a history of osteoporosis and vitamin D deficiency. She reports that she has never smoked. She does not have any smokeless tobacco history on file. Currently on treatment with calcium and vitamin D, previously treated with zoledronic acid (Reclast), and current complaint of arm pain. INDICATIONS: Menopause status, vitamin D deficiency, and history of osteoporosis. FINDINGS: BONE MINERAL DENSITY OF THE LUMBAR SPINE Bone Mineral Density (BMD) of the lumbar spine was measured from L1, L3-L4 and the average density was calculated to be 0.864 gm/cm2. This corresponds to a T-score (standard deviations from the mean of young adults) of -1.7. When compared to the previous study of 04/29/2023 there has been a 0.035 gm/cm (4.2%) increase in bone density that is considered significant. BONE MINERAL DENSITY OF THE PROXIMAL FEMUR Bone Mineral Density (BMD) of the left hip total was found to be 0.766 gm/cm2. This corresponds to a T-score standard deviations from the mean of young adults of -1.4. Femoral neck is 0.590 gm/cm2 with a T-score (standard deviations from the mean of young adults) of -2.3. When compared to the previous study of 04/29/2023 there has been no significant changes in bone density. SUMMARY: Bone mineral density shows evidence of low bone mass at the lumbar spine and proximal femur and moderately increased fracture risk (Osteopenia). There has been a significant increase in bone density since previous measurement. L2 excluded from bone mineral density analysis of the lumbar spine due to bone density being more than 1 standard deviation discrepant relative to one adjacent vertebra. Clinical correlation is recommended. The lumbar spine Trabecular Bone Score is 1.309 which suggests partially degraded bone microarchitecture compared to the general population. Final decisions regarding diagnostic or therapeutic recommendations should include BMD, TBS, additional clinical risk factors as well the clinical context of the patient. Please see attached TBS results for further details. ADDITIONAL COMMENTS: Postmenopausal Women and Men Over 50: Diagnostic criteria: Osteoporosis: BMD at or below -2.5 T-score; Osteopenia (low bone mass): BMD between -1.0 and -2.5 T-score. If the patient has a history of a fragility fracture, a fracture that occurred with trauma equivalent to a fall from a standing position or less, then the diagnosis is osteoporosis regardless of bone density. The history and data sections of the bone mineral density scan were prepared by Shireen Natarajan) MIRIAMT who is accredited by the International Society of Clinical Densitometry. The overall patient assessment and scan interpretation were performed by Earl Olvera M.D. who is certified by the International Society of Clinical Densitometry. [id number] us Linda Moy MD IMG DXA PROCEDURES Final Result * Colonoscopy (01/12/2024 7:38 AM SOLAR SYSTEMS DESIGNER) Anatomical Region Laterality Modality Other Narrative Procedure Note Karri Santiago MD - 01/12/2024 7:38 AM CST ENDOSCOPY LAB Patient Name: Marcella Figueroa Procedure Date: 01/12/2024 7:38 AM Admit Type: Outpatient Room: [facility] Date of : 1970 Instrument Name: [id number] Gender: Female Note Status: Finalized Procedure: Colonoscopy Indications: [facility] Family history of colorectal cancer in multiple 2nd degree relatives, Last colonoscopy 5 years ago Providers: Dyllan Santiago M.D. Referring MD: Eliseo Leslie M.D. Medicines: Monitored Anesthesia Care Complications: No immediate complications. Estimated Blood Loss: Estimated blood loss: none. Procedure: Pre-Anesthesia Assessment: - Immediately prior to administration ofmedications, the patient was re-assessed for adequacy to receive sedatives. - The risks and benefits of the procedure and the sedation options and risks were discussed with the patient. All questions were answered and informed consent was obtained. The benefits, risks and alternatives of theprocedure and sedation were discussed and informed consentwas obtained. All questions were answered. Please referto the signed informed consent document in the medical record. The scope was passed under direct vision.The Colonoscope was introduced through the anus and advanced to the the cecum, identified byappendiceal orifice and ileocecal valve. The colonoscopy was performed without difficulty. The patient tolerated the procedure well. The quality of the bowel preparation was good. The bowel preparation usedwas Miralax via split dose instruction. Findings: The entire examined colon appeared normal on direct and retroflexion views. No polyps seen. Impression: - The entire examined colon is normal on direct and retroflexion views. - No polyps seen. Recommendation: - Repeat colonoscopy in 5 years for surveillance. Electronically signed by Dyllan Santiago MD Dyllan Santiago M.D. 01/12/2024 8:32:07 AM Number of Addenda: 0 Note Initiated On: 01/12/2024 7:38 AM Scope Withdrawal Time: 0 hours 6 minutes 52 seconds Scope In: 8:17:20 AM Scope Out: 8:30:20 AM us Karri Santiago MD ENDOSCOPY PROCEDURES Final Result from Last 3 Months or Most Recently Relevant to Health Maintenance Insurance CHOICE [place]F PPO [place] CIG[place] Advance Directives For more information, please contact: [phone] * Full Code (Latest Code Status on File) Date Activated Date Inactivated Comments 01/12/2024 7:39 AM 01/12/2024 1:06 PM Care Teams Superintendent [employer] Relationship Specialty Start Date End Date Eliseo Leslie MD [address] [place] [address] PCP - General 09/18/19
--- OUTSIDE RECORDS SUMMARY | 2024-08-18 13:22 | XMS_ITS | Data Portability ---
Author Organization [facility] [place] Address [address] [place] [address] Assessment Encounter Date Assessment Date Assessment LastModified by Organization Details LastModified Time 09/08/2019 09/08/2019 Annual gynecological exam performed. Patient will come back in a year unless there are new symptoms. aaron Not available 09/08/2019 14:48:25 10/01/2020 10/01/2020 healthy female exam/menopause patient declines std testing pap due next year, discussed guidelines mammogram ordered and encouraged colonoscopy referral placed dexa baseline at 60 pt desires to keep mirena until 7 years-- 2023 Encouraged weight bearing exercise and 1500mg daily of Calcium with Vitamin D FU 1 year or prn Not available 10/02/2020 09:17:51 07/30/2022 07/30/2022 Annual gynecological exam performed. Patient will come back in a year unless there are new symptoms. [email or web address] Not available 07/30/2022 10:12:22 01/18/2024 01/18/2024 Annual gynecological exam performed. Patient will come back in a year unless there are new symptoms. [email or web address] Not available 01/18/2024 09:17:42 Plan of Treatment Reminders Order Date Submit Date Provider Last Modified By Organization Details Last Modified Time Details Appointments None recorded. Lab CMP, serum or plasma 2022 023 [facility] (Lab), [address], [place], [address], 10:32:34 CMP, serum or plasma 2022 023 [facility] (Lab), [address], [place], [address], 3 19:13:36 hormone panel, serum or plasma 2022 023 [facility] (Lab), [address], [place], [address], 3 19:13:37 testostero ne free/testo sterone total, ratio, serum 2022 023 [facility] (Lab), [address], [place], [address], 3 19:13:37 TSH, serum or plasma 2022 023 [facility] (Lab), [address], [place], [address], 3 19:13:36 Referral None recorded. Procedures None recorded. Surgeries None recorded. Imaging MAMMO, screening, digital, bilateral 2023 024 [facility], [address] [address], [place], [address], 5 05:01:04 Medication Orders amitriptyl ine 50 mg tablet 2023 024 [facility] [id number], [address], [place], [id number], 4 09:46:22 amitriptyl ine 50 mg tablet 2019 020 [facility] [employer], [facility][id number], [address], [place], [id number], 0 15:22:41 Patient TargetsNo targets recorded. Patient InstructionsNo instructions recorded. Reason for Referral None Reported. Results Created Date Observation Date Name Description Value Unit Range Abnormal Flag Note LastModifiedBy Organization Detail LastModifiedTime 09/08/19 20 09/13/2019 pap, LB Pap test thin prep Negati ve for Intrae pithel ial Lesion or Malign robyn normal ACCES EDWIN #: [id number] Sour e: Cervi elbert/E ndoce rvica l LMP: 02/08 Date Taken : 09/07 Speci men Type: ThinP rep Vial Date Repor juan jose: Clini elbert Data: Cytot ech: Az Lagunae r,CT( ASCP) Date Repor juan jose: Revie wed By: Michael Rutherford on, CT( CP) Speci men Adequ acy: Satis facto ry for evalu ation Scant cellu larit y Endoc ervic al/tr ansfo rmati on zone compo nent prese nt Gener al Categ oriza tion: NEGAT HIMA FOR INTRA EPITH ELIAL LESIO N OR MALIG CARRIE Comme nts/R ecomm endat ions: Blood prese nt This speci men has been sandeep zed by the ThinP rep Imagi ng Syste m, an inter activ e compu ter syste m which cyndie ts the lab in the scree malcolm of ThinP rep Pap Test slide jordan jean imagi ng, the slide was revie wed by a Cytot echno logis t and/o r Patho logis t. D N A A S S A Y S R E P O R T TEST NAME RESUL TS ----- ---- ----- -- HPV High Risk Scree n (TMA) ThinP rep Vial The human papil lomav irus (HPV) High Risk Scree n is an FDA-a pprov ed in-vi tro ampli fied nucle ic acid test for the quali tativ e detec tion of E6/E7 viral mRNA. Resul ts cris bernstein lated with patiarpita nt prese ntati on, histo ry, cervi elbert cytol ogy and other clini elbert and labor atory findi ngs. See https ://tammy wProviation/s ashok/ oralia lt/fi les/2 018-0 3/AW- 64395 _002_ 01.pd f for furth er infor matio n. Test perfo rmed by [employer], [address], [place] [address] , Andrea Mars ra, DO, Labor atory Dire tor. HPV High Risk *HPV NOT DETEC JUAN JOSE (TYPE S 16, 18, 31, 33, 35, 39, 45, 51, 52, 56, 58, 59, 66, 68) *HPV: The human papil lomav irus (HPV) High Risk Sydney jones is an FDA-a pprov ed in-vi tro ampli fied nucle ic acid test for the quali tativ e detec tion of E6/E7 viral mRNA. Resul cris d be corre lated with patie nt prese ntati on, histo ry, cervi elbert cytol ogy and other clini elbert and labor atory findi ngs. See https ://mNectar/s ites/ defau lt/fi les/2 018-0 3/AW- 05553 _002_ 01.pd f for [facility] infor matio n. Test perfo rmed by [employer], [address], [place] [address] , Andrea Mars ra, , Labor atory Dire tor. End of Repor t Techn ical servi oz provi ded by [employer], [address] [place] [address] Desmond Agarwal MD, Labor atorImpermium Dire tor. Case revie wed and diagn osis rende red at [employer], [address] [place] [address] Desmond Agarwal MD, Labor atorImpermium Dire tor. CONFI DENTI AL Not Available [facility] ([facility]) [address], [place], [address], 09/13/2019 11:01:06 09/08/19 20 09/09/2019 HPV DNA, high- risk HPV high risk NOT DETECT ED normal Not Available [facility]) [address], [place], [address], 09/13/2019 11:01:06 07/31/19 23 07/30/2022 IMAGE GUIDE D PAP AND HPV REGAR DLESS image guided Pap, HPV regardless of Pap result SEE RESULT S BELOW CASE REPOR T: Cytol ogy Gynec ologi elbert Repor t Case: [id number] [employer] karishma Provi suzanne: Greer Dasilva, TONA Colle cted: 07/30 1459 Order ing Locat ion: [place] Patho logy Recei gordy: 07/31 0440 First Scree n: Marianne Draper ret, CT Speci men: Scree malcolm Pap - Image d, Cervi x STATE MENT OF ADEQU ACY: Satis facto ry for evalu ation Trans forma tion zone compo nent prese nt FINAL DIAGN OSIS: Negat hima for Intra epith elial Cata jones or Kristen dominguez (NIL) . Romel guthrie elvira d by Marianne Draper ret, CT on 2022 at 2:20 PM ----- ----- ----- ----- ----- ----- ----- ----- ----- ----- ----- ----- ----- ----- ----- ----- ----- ---- HPV RESUL TS: HPV mRNA E6/E7 : No HPV mRNA Detec juan jose NOTE: This high risk HPV mRNA assay detec ts fourt een high- risk HPV types (16, 18, 31, 33, 35, 39, 45, 51, 52, 56, 58, 59, 66, 68) witho ut diffe renti ation . COMME NT: This speci men was revie wed by a Cytot echno logis t and/o r Patho logis t (as indic ated in this repor t) after evalu ation using the Thinp rep Imagi ng Syste m. CLINI ELBERT INFOR MATIO N: Menst rual Statu s: LMP (if appli cable ): Clini elbert Histo ry/Pr eviou s Pap: Type of Neopl darwin (if appli cable ): Signi fican t Clini elbert Findi ngs: Other Histo ry: Hormo larisa (if appli cable ): PAP EDUCA NELLY L NOTE: The Pap Test is a scree malcolm test with an inher ent false negat hima rate. Liqui d-bas ed sampl ing may decre ase, but will not elimi kayden, false negat hima resul ts. A negat hima resul t does not precl ude the prese nce and/o r devel opmen t of disea se, since the prese nce of abnor mal cells in the sampl e depen ds on the locat ion of the lesio n and sampl ing techn ique. Hong nued regul ar scree malcolm is the best metho d of cance r preve ntion . If repor juan jose cytol ogic findi ng do not corre late with physi elbert and/o r histo rical findi ngs, furth er inves tigat ion is recom luis fernando d, as clini tatum oleary nted. Not Available [facility] (Lab) [address], [place], [address], 08/03/2022 15:24:40 07/31/19 23 07/30/2022 CMP WITH BUN/C REAT RATIO sodium 141 mmol/ L 133-14 6 Not Available [facility] (Lab) [address], [place], [address], 08/07/2022 19:13:36 07/31/19 23 07/30/2022 CMP WITH BUN/C REAT RATIO potassium 3.2 mmol/ L 3.5-5. 1 low Not Available [facility] (Lab) [address] [place], [address], 08/07/2022 19:13:36 07/31/19 23 07/30/2022 CMP WITH BUN/C REAT RATIO chloride 98 mmol/ L 98-107 Not Available [facility] (Lab) [address], [place], [address], 08/07/2022 19:13:36 07/31/19 23 07/30/2022 CMP WITH BUN/C REAT RATIO carbon dioxide 32 mmol/ L 21-31 high Not Available [facility] (Lab) [address], [place], [address], 08/07/2022 19:13:36 07/31/19 23 07/30/2022 CMP WITH BUN/C REAT RATIO anion gap 11 mmol/ L 4-13 Not Available [facility] (Lab) [address], [place], [address], 08/07/2022 19:13:36 07/31/19 23 07/30/2022 CMP WITH BUN/C REAT RATIO blood urea nitrogen 10 mg/dL 7-25 Not Available [facility] (Lab) [address], [place], [address], 08/07/2022 19:13:36 07/31/19 23 07/30/2022 CMP WITH BUN/C REAT RATIO creatinine 0.94 mg/dL 0.60-1 .30 Not Available [facility] (Lab) [address], [place], [address], 08/07/2022 19:13:36 07/31/19 23 07/30/2022 CMP WITH BUN/C REAT RATIO egfrcr (CKD-epi 2020) 72 mL/mi n/1.7 3_m2 >=60 Not Available [facility] (Lab) [address], [place], [address], 08/07/2022 19:13:36 07/31/19 23 07/30/2022 CMP WITH BUN/C REAT RATIO BUN/creatini ne ratio 10.6 . 10.0-2 2.0 Not Available [facility] (Lab) [address], [place], [address], 08/07/2022 19:13:36 07/31/19 23 07/30/2022 CMP WITH BUN/C REAT RATIO calcium 10.0 mg/dL 8.3-10 .5 Not Available [facility] (Lab) [address], [place], [address], 08/07/2022 19:13:36 07/31/19 23 07/30/2022 CMP WITH BUN/C REAT RATIO glucose 81 mg/dL 70-100 Not Available [facility] (Lab) [address], [place], [address], 08/07/2022 19:13:36 07/31/19 23 07/30/2022 CMP WITH BUN/C REAT RATIO protein, total 7.1 g/dL 6.4-8. 3 Not Available [facility] (Lab) [address], [place], [address], 08/07/2022 19:13:36 07/31/19 23 07/30/2022 CMP WITH BUN/C REAT RATIO albumin 4.9 g/dL 3.5-5. 0 Not Available [facility] (Lab) [address], [place], [address], 08/07/2022 19:13:36 07/31/19 23 07/30/2022 CMP WITH BUN/C REAT RATIO ALT 12 units /L 9-43 Not Available [facility] (Lab) [address] [place], [address], 08/07/2022 19:13:36 07/31/19 23 07/30/2022 CMP WITH BUN/C REAT RATIO alkaline phosphatase 102 units /L 34-104 Not Available [facility] (Lab) [address] [place], [address], 08/07/2022 19:13:36 07/31/19 23 07/30/2022 CMP WITH BUN/C REAT RATIO AST 16 units /L 13-39 Not Available [facility] (Lab) [address] [place], [address], 08/07/2022 19:13:36 07/31/19 23 07/30/2022 CMP WITH BUN/C REAT RATIO bilirubin, total 0.5 mg/dL 0.2-1. 2 Not Available [facility] (Lab) [address] [place], [address], 08/07/2022 19:13:36 07/31/19 23 07/30/2022 TSH, REFLE X FREE T4 TSH 1.30 uIU/m L 0.30-5 .33 Not Available [facility] (Lab) [address] [place], [address], 08/07/2022 19:13:36 07/31/19 23 07/30/2022 FSH, LH, ESTRA DIOL estradiol <5.0 pg/mL This assay was perfo rmed using [employer] ratio n reage nts and test kits. Value s obtai darlin with other assay metho ds or kits canno t be used inter eably . Femal e Estra diol Range s: Folli cular phase 12.4- 233 pg/mL Ovula tion phase 41.0- 398 pg/mL Lutea l phase 22.3- 341 pg/mL Postm enopa usal< 5-138 pg/mL Healt hy Pregn ant Women 1st Trime ster1 54-32 43 pg/mL 2nd Trime ster1 561-2 1280 pg/mL 3rd Trime ster8 525-> 71675 pg/mL Not Available [facility] (Lab) [address] [place], [address], 08/07/2022 19:13:37 07/31/19 23 07/30/2022 FSH, LH, ESTRA DIOL FSH 109.0 mIU/m L This assay was perfo rmed using [employer] reage nts and test kits. Value s obtai darlin with other assay metho ds or kits canno t be used inter [facility] . Femal es Folli cular : 3.5-1 2.5 mIU/m L Ovula tion: 4.7-2 1.5 mIU/m L Lutea l: 1.7-7 .7 mIU/m L Postm enopa use: 25.8- 134.8 mIU/m L Not Available [facility] (Lab) [address], [place], [address], 08/07/2022 19:13:37 07/31/19 23 07/30/2022 FSH, LH, ESTRA DIOL LH 62.9 mIU/m L This assay was perfo rmed using [employer] ratio n reage nts and test kits. Value s obtai darlin with other assay metho ds or kits canno t be used inter [facility] . Femal es Mid-F ollic ular: 2.4-1 2.6 mIU/m L Mid-C ycle: 14.0- 95.6 mIU/m L Mid-L uteal : 1.0-1 1.4 mIU/m L Postm enopa use: 7.7-5 8.5 mIU/m L Not Available [facility] (Lab) [address] [place], [address], 08/07/2022 19:13:37 07/31/19 23 07/30/2022 TESTO STERO NE, FREE( DIALY SIS) AND TOTAL (LC/M S/MS) testosterone , total 27 NG/dL 2-45 For addit ional infor yuri jean baptiste e refer to http: //chantell jones.que stdia gnost ics.c om/fa q/Tot alTjenae Carlisle [facility] (This link is being provi ded for infor kendell perera/ educa nelly l purpo ses only. ) This test was devel oped and its sandeep tical perfo rmanc e russel cteri stics have been deter mined by [employer]. It has not been clear ed or appro gordy by the FDA. This assay has been valid ated pursu ant to the CLIA regul ation s and is used for clini elbert purpo ses. Not Available [facility] (Lab) [address], [place], [address], 08/07/2022 19:13:37 07/31/19 23 07/30/2022 TESTO STERO NE, FREE( DIALY SIS) AND TOTAL (LC/M S/MS) testosterone , free 2.0 pg/mL 0.1-6. 4 This test was devel oped and its sandeep tical perfo rmanc e russel cteri stics have been deter mined by [employer]. It has not been clear ed or appro gordy by the FDA. This assay has been valid ated pursu ant to the CLIA regul ation s and is used for clini elbert purpo ses. Perfo rming Organ izati on Infor matio n: Site ID: [id number] Name: [employer] Vashti rea Addre ss: [id number] [place] [address] Direc tor: Nicki garcia M.D. Not Available [facility] (Lab) [address], [place], [address], 08/07/2022 19:13:37 09/09/19 23 09/08/2022 CMP WITH BUN/C REAT RATIO sodium 142 mmol/ L 133-14 6 Not Available [facility] (Lab) [address], [place], [address], 09/09/2022 02:53:12 09/09/19 23 09/08/2022 CMP WITH BUN/C REAT RATIO potassium 3.9 mmol/ L 3.5-5. 1 Not Available [facility] (Lab) [address], [place], [address], 09/09/2022 02:53:12 09/09/19 23 09/08/2022 CMP WITH BUN/C REAT RATIO chloride 105 mmol/ L 98-107 Not Available [facility] (Lab) [address], [place], [address], 09/09/2022 02:53:12 09/09/19 23 09/08/2022 CMP WITH BUN/C REAT RATIO carbon dioxide 31 mmol/ L 21-31 Not Available [facility] (Lab) [address], [place], [address], 09/09/2022 02:53:12 09/09/19 23 09/08/2022 CMP WITH BUN/C REAT RATIO anion gap 6 mmol/ L 4-13 Not Available [facility] (Lab) [address], [place], [address], 09/09/2022 02:53:12 09/09/19 23 09/08/2022 CMP WITH BUN/C REAT RATIO blood urea nitrogen 18 mg/dL 7-25 Not Available [facility] (Lab) [address], [place], [address], 09/09/2022 02:53:12 09/09/19 23 09/08/2022 CMP WITH BUN/C REAT RATIO creatinine 0.82 mg/dL 0.60-1 .30 Not Available [facility] (Lab) [address], [place], [address], 09/09/2022 02:53:12 09/09/19 23 09/08/2022 CMP WITH BUN/C REAT RATIO egfrcr (CKD-epi 2020) 85 mL/mi n/1.7 3_m2 >=60 Not Available [facility] (Lab) [address], [place], [address], 09/09/2022 02:53:12 09/09/19 23 09/08/2022 CMP WITH BUN/C REAT RATIO BUN/creatini ne ratio 22.0 . 10.0-2 2.0 Not Available [facility] (Lab) [address], [place], [address], 09/09/2022 02:53:12 09/09/19 23 09/08/2022 CMP WITH BUN/C REAT RATIO calcium 9.5 mg/dL 8.3-10 .5 Not Available [facility] (Lab) [address], [place], [address], 09/09/2022 02:53:12 09/09/19 23 09/08/2022 CMP WITH BUN/C REAT RATIO glucose 80 mg/dL 70-100 Not Available [facility] (Lab) [address], [place], [address], 09/09/2022 02:53:12 09/09/19 23 09/08/2022 CMP WITH BUN/C REAT RATIO protein, total 6.0 g/dL 6.4-8. 3 low Not Available [facility] (Lab) [address], [place], [address], 09/09/2022 02:53:12 09/09/19 23 09/08/2022 CMP WITH BUN/C REAT RATIO albumin 4.0 g/dL 3.5-5. 0 Not Available [facility] (Lab) [address], [place], [address], 09/09/2022 02:53:12 09/09/19 23 09/08/2022 CMP WITH BUN/C REAT RATIO ALT 20 units /L 9-43 Not Available [facility] (Lab) [address] [place], [address], 09/09/2022 02:53:12 09/09/19 23 09/08/2022 CMP WITH BUN/C REAT RATIO alkaline phosphatase 64 units /L 34-104 Not Available [facility] (Lab) [address] [place], [address], 09/09/2022 02:53:12 09/09/19 23 09/08/2022 CMP WITH BUN/C REAT RATIO AST 16 units /L 13-39 Not Available [facility] (Lab) [address] [place], [address], 09/09/2022 02:53:12 09/09/19 23 09/08/2022 CMP WITH BUN/C REAT RATIO bilirubin, total 0.3 mg/dL 0.2-1. 2 Not Available [facility] (Lab) [address], [place], [address], 09/09/2022 02:53:12 09/21/19 20 09/21/2019 MAMMO , scree malcolm, bilat eral No observ ation record ed. [facility] (Imaging) [address] [place], [address], 09/28/2019 13:51:16 09/26/19 20 09/21/2019 MAMMO , scree malcolm, bilat eral No observ ation record ed. [facility] (Imaging) [address] [place], [address], 09/28/2019 13:51:17 09/26/19 20 09/21/2019 MAMMO , scree malcolm, bilat eral No observ ation record ed. [facility] [address] [place], [address], 02/13/2020 16:14:56 11/17/19 21 11/15/2020 MAMMO , scree malcolm, bilat eral No observ ation record ed. [facility] [address], [place], [address], 11/18/2020 09:54:52 Result Notes None recorded. 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 1 18:26:18 Screenin g for malignan t neoplasm of rectum Completed 201710/01/2020 Encounte r for screenin g for malignan t neoplasm of rectum;P ractice ID: [id number] Laurie Reese MD [address], [place], [address], [facility] 1 18:26:14 Insertio n of intraute rine contrace ptive device Completed 201610/01/2020 Encounte r for insertio n of intraute rine contrace ptive device;R ecorded Elsewher e: No Locat ion: [facility] S ource: EHR Telephone Sales Agent red: N Practi ce ID: [id number] Ra lable Time: 01:45:00 PM Laurie Reese MD [address], [place], [address], [facility] 1 18:26:05 Screenin g for malignan t neoplasm of cervix Completed 201010/01/2020 Screenin g for malignan t neoplasm s of the cervix;R ecorded Elsewher e: No Locat ion: [facility] S ource: EHR Telephone Sales Agent red: N Qingti ce ID: [id number] Ra lable Time: 11:00:00 AM Laurie Reese MD [address], [place], [address], [facility] [address] 18:26:[address] Concept Completed 201610/01/2020 Encntr for general adult medical exam w/o abnormal findings ;Recorde d Elsewher e: No Locat ion: [facility] S ource: EHR Telephone Sales Agent red: N Practi ce ID: [id number] Ra lable Time: 01:30:[address] MD [address], [place], [address], [facility] 1 18:26:16 Removal of intraute rine device Completed 201610/01/2020 Encounte r for removal of intraute rine contrace ptive device;R ecorded Elsewher e: No Locat ion: [facility] S ource: EHR Telephone Sales Agent red: N Alison ce ID: [id number] Ra lable Time: 01:45:00 PM Laurie Reese MD [address], [place], [address], [facility] 18:26:09 Pregnanc y test negative [id number] Completed 201610/01/2020 Encounte r for pregnanc y test, result negative ;Recorde d Elsewher e: No Locat ion: [facility] S ource: EHR Telephone Sales Agent red: N Alison ce ID: [id number] Ra lable Time: 01:45:00 PM Laurie Reese MD [address], [place], [address], [facility] 18:26:07 Speciali zed medical examinat ion Completed 201310/01/2020 Gynecolo gical Examinat ion;Rasheed rded Elsewher e: No Locat ion: [facility] S ource: EHR Telephone Sales Agent red: N Alison ce ID: [id number] Ra lable Time: 11:30:00 AM Laurie Reese MD [address], [place], [address], [facility] 18:26:19 Adult health examinat ion Completed 201410/01/2020 ROUTINE MEDICAL EXAM;Rec orded Elsewher e: No Locat ion: [facility] S ource: EHR Telephone Sales Agent red: N Alison ce ID: [id number] Ra lable Time: 11:00:00 AM Laurie Reese MD [address], [place], [address], [facility] 18:25:58 Contrace ptive sheath status [id number] Completed 201610/01/2020 IUD follow up;Recor ded Elsewher e: No Locat ion: [facility] S ource: EHR Telephone Sales Agent red: N Practi ce ID: [id number] Ra lable Time: 11:30:00 AM Laurie Reese MD [address], [place], [address], [facility] 18:26:01 Ill-defi darlin intestin al infectio n Completed 201210/01/2020 No Show Fee;Prac hyun ID: [id number] Laurie Reese MD [address], [place], [address], [facility] 18:26:03 Intraute rine contrace ptive device in situ [id number] Active 2016 Laurie Reese MD [address], [place], [address], [facility] 18:26:37 Body mass index 30+ - obesity [id number] Active 2020 Laurie Reese MD [address], [place], [address], [facility] 18:26:53 Problem Notes None recorded. Procedures Surgical History Date Name Laterality Status Provider Name and Address Organization Details Recorded Time 01/12/20 24 Date of Last Colonoscopy completed FLORENCIO GR NP [address], [place], [address], [facility] 01/18/2024 09:35:17 09/09/19 24 Date of Last Mammogram completed [facility] 01/18/2024 09:25:31 07/31/19 23 Date of Last Pap Smear completed [facility] 01/18/2024 09:18:10 02/08/19 11 Colonoscopy completed [facility] 09/01/2019 15:01:05 plastic repair procedure completed [facility] 09/01/2019 15:01:37 Imaging Results None recorded. Procedure Notes None recorded. Medical Equipment None Reported. Allergies No known drug allergies Medications Name Sig Start Date Stop Date Status Note LastModified by Organization Details LastModified Time Mirena 21 mcg/24 hr (up to 8 years) 52 mg intrauter ine device Take by intraute rine route. 2016 active Not Available Not Available Not Avai lable cefuroxim e axetil 250 mg tablet TAKE 1 TABLET BY MOUTH TWICE DAILY 07/30 completed Not Available Not Available Not Available ropinirol e 1 mg tablet TAKE 1 TABLET BY MOUTH EVERY NIGHT AT BEDTIME 01/17 completed Not Available Not Available Not Available azithromy lili 250 mg tablet 09/07 completed Not Available Not Available Not Available hydrocodo ne 5 mg-acetam inophen 325 mg tablet TAKE ONE TABLET BY MOUTH EVERY 4 TO 6 HOURS NEEDED FOR PAIN 07/30 completed Not Available Not Available Not Available naltrexon e 50 mg tablet TAKE 1 TABLET BY MOUTH EVERY DAY active Not Available Not Available No t Available betametha sone, augmented 0.05 % topical cream APPLY TOPICALL Y TO RASH TWICE DAILY FOR 4 WEEKS FOR FLARES. DO NOT APPLY TO FACE active Not Available Not Available No t Available penicilli n V potassium 500 mg tablet TAKE 1 TABLET BY MOUTH FOUR TIMES DAILY UNTIL ALL TAKEN 07/30 completed Not Available Not Available Not Available naproxen 125 mg/5 mL oral suspensio n take 10 millilit er by oral route 6 - 8 hours as needed with food 07/27 completed Prescrib ed Elsewher e: Yes Loca tion: [facility] M odify By: christa kaur DateTime : 01/08/20 11 11:00:00 AM Not Available Not Available Not Available amitripty line 50 mg tablet Take 2 tablets every day by oral route at bedtime for 90 days. active Not Available Not Available No t Available triamcino lone acetonide 0.1 % topical cream 10/01 completed Not Available Not Available Not Available spironola ctone 25 mg tablet Take 1 tablet every day by oral route. 01/17 completed Not Available Not Available Not Available alprazola m 0.5 mg tablet 09/07 completed Not Available Not Available Not Available propranol ol 10 mg tablet TAKE 1 TO 3 TABLETS BY MOUTH EVERY DAY FOR 7 DAYS NEEDED FOR ANXIETY 10/01 completed Not Available Not Available Not Available amoxicill in 875 mg tablet TAKE 1 TABLET BY MOUTH TWICE DAILY 01/17 completed Not Available Not Available Not Available amitripty line 25 mg tablet TAKE 1 TABLET BY MOUTH EVERY DAY AT BEDTIME. AVOID DRIVING OR MACHINE 01/17 completed Not Available Not Available Not Available ciproflox acin 0.3 % eye drops INSTILL 1 DROP IN RIGHT EYE THREE TIMES DAILY 01/17 completed Not Available Not Available Not Available amitripty line 10 mg tablet take 1 tablet by oral route 3 times every day 01/07 completed Prescrib ed Elsewher e: Yes [facility] By: sarkis coe DateTime : 01/06/20 11 08:15:00 PM Not Available Not Available Not Available ropinirol e 2 mg tablet active Not Available Not Available Not Available oseltamiv ir 75 mg capsule 10/01 completed Not Available Not Available Not Available buspirone 10 mg tablet TAKE 1 TABLET BY MOUTH TWICE DAILY 10/01 completed Not Available Not Available Not Available Voltaren 0.1 % eye drops instill 1 drop by ophthalm ic route 4 times every day into affected eye(s) beginnin g within 15 minutes after surgery 05/31 completed Prescrib ed Elsewher e: Yes [facility] By: christa kaur DateTime : 01/08/20 11 11:00:00 AM Not Available Not Available Not Available gabapenti n 300 mg capsule TAKE 1 CAPSULE BY MOUTH THREE TIMES DAILY. AVOID DRIVING OR OPERATE MACHINES active Not Available Not Available No t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
--- OUTSIDE RECORDS SUMMARY | 2024-08-18 13:22 | XMS_ITS | Encounter Summary ---
Author Organization [facility] Address [address] [place] [address] Phone Care Team Providers Care Principal Planner Name Role Phone Eliseo Leslie MD Primary Care Provider Encounter Details Date Type Department Care Team (Late st Contact Info) Description 08/08/2024 Results Follow-Up [facility] [address] [facility] [address] 5th [place] [address] [place] [address] Tariq Pandya, TONA [address] 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
--- OUTSIDE RECORDS SUMMARY | 2024-08-18 13:22 | XMS_ITS | Data Portability ---
Author Organization [facility], Main Office Address [address] [place] [address] Care Team Providers Care Hedis Nurse Name Role Phone ARTUR TIEN Primary Care Provider TIEN SIDDIQUI Referring Provider Assessment Encounter Date Assessment Date Assessment LastModified by Organization Details LastModified Time 05/21/2022 05/21/2022 Patient returns knee pain left. She had an MRI scan a year and a half ago that demonstrated a tear. I recommended surgery at that point. She has decided finally that she needs to have it done as the pain is getting worse and not better she has tried conservative treatment has not worked. I have discussed treatment options with her in detail risks benefits limitations and alternatives. We will proceed with arthroscopy partial meniscectomy left knee proceed as indicated. I have offered to obtain a new MRI scan she declined that she just wants to have her knee fixed. lawanda Not available 05/21/2022 12:20:48 Plan of Treatment Reminders Order Date Submit Date Provider Last Modified By Organization Details Last Modified Time Details Appointments None record ed. Lab None record ed. Referral None record ed. Procedures None record ed. Surgeries None record ed. Imaging XR, knee 023 05/22/19 23 [email or web address] [facility] [place], [facility] [facility] [address], [place], [address], 3 12:52:47 Medication Orders None record ed. Patient TargetsNo targets recorded. Patient InstructionsNo instructions recorded. Reason for Referral None Reported. Results Created Date Observation Date Name Description Value Unit Range Abnormal Flag Note LastModifiedBy Organization Detail LastModifiedTime 12/05/19 21 MRI knee lt wo [facility] [address], [place] [address] [phone] Boris t Name: CARLINE RODRIGUEZ Access ion #: [id number] Sex: F : 1970 Locati on: IND Attend ing Physic archana: Anais scruggs Physic archana: MARGOT HAMLIN Exam Date: 2020 8:04 AM Exam Name: MRI KNEE LT WO Admitt ing Diagno sis(es ): RADIOL OGY REPORT - FINAL EXAM: MRI KNEE LT WO HISTOR Y: pain COMPAR WILBERTO: None availa ble. TECHNI QUE: Multip lanar multis equenc e noncon trast MR images of the left knee were perfor med. FINDIN GS: A small Medina' s cyst format ion and joint effusi on is noted. There is mild prepat ellar bursal fluid. No fractu re or disloc ation is noted. There is marrow edema noted in the medial femora l condyl e and medial tibial platea u which is likely degene rative in nature . No displa shivani fractu re is seen. There is mild chondr omalac ia of the medial femora l condyl e. The Page 1 [facility] 2 [facility] Boris t Name: CARLINE RODRIGUEZ Access ion #: [id number] Sex: F : 1970 Exam Date: 2020 8:04 AM Exam Name: MRI KNEE LT WO Admitt ing Diagno sis(es ): patell ofemor al joint space is somewh at narrow ed with minima l chondr omalac ia. The ACL, PCL, MCL, LCL and extens or mechan ism are grossl y intact . The visual developer olater al corner is struct ures are normal . The visual developer ior horn the medial menisc us demons trates a comple x tear withou t extrus ion. The latera l menisc us is intact . The overly ing muscul ature demons trates normal signal and morpho logy. 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 Mild bone contus ion of the medial compar tment. Small effusi on and Medina cyst format ion. Mild chondr omalac ia of the medial femora l condyl e and patell a. Create d and electr onical ly signed by: Jake West ch, DO Signed Date: 2020 3:49 PM (CT) Dictat ed by: Jake West ch, DO DD: 2020 3:49 PM (CT) DT: 2020 3:49 PM (CT) Page 2 of 2 [id number] [place] (Imaging) [address] [place], [address], 04/08/2022 01:03:01 12/10/19 21 12/04/2020 MRI, knee, w/o contr ast No observ ation record ed. [id number] [facility] [address], [place], [address], 04/08/2022 01:03:01 05/22/19 23 XR, knee No observ ation record ed. [email or web address] [facility] [place] [address], [place], [address], 05/21/2022 12:22:01 Result Notes None recorded. Problems Name Problem SNOMED Code Status Onset Date Resolution Date Notes Provider Name and Address Organization Details Recorded Time Insomnia 283587667 Active Not Available [facility] 3 00:55:37 Contact dermatitis caused by plants Active Not Available [facility] 3 00:55:37 Malaise and fatigue 747169023 Active Not Available [facility] 3 00:55:37 Restless legs 30737832 Active Not Available [facility] 3 00:55:38 Sinusitis 01512013 Active Not Available [facility] 3 00:55:38 Reduced libido 6364568 Active Not Available [facility] 3 00:55:38 Pain of left knee joint 0087604719067 07 Active 2022 MIK Mccray null, [place] - [facility] 3 10:31:44 Tear of medial meniscus of knee 083979598 Active 2022 Wilman MIK Das, [facility] 3 10:31:56 Problem Notes None recorded. Medical Equipment None Reported. Medications Name Sig Start Date Stop Date Status Note LastModified by Organization Details LastModified Time cyclobenza madi 10 mg tablet TK ONE T PO TID active Not Available Not Available No t Available amoxicilli n 500 mg capsule TAKE ONE CAPSULE BY MOUTH 3 TIMES A DAY active Not Available Not Available No t Available prednisone 10 mg tablet take 40mg x 3 days, 30mg x3 days, 20mg x 3 days, 10mg x 3 days 05/21 completed Not Available Not Available Not Available doxycyclin e hyclate 100 mg capsule TK ONE C PO BID FOR 14 DAYS 03/13 completed Not Available Not Available Not Available cefuroxime axetil 250 mg tablet TAKE 1 TABLET BY MOUTH TWICE DAILY 05/21 completed Not Available Not Available Not Available ropinirole 1 mg tablet TAKE 1 TABLET BY MOUTH EVERY NIGHT AT BEDTIME 05/21 completed Not Available Not Available Not Available citalopram 40 mg tablet 02/13 completed Not Available Not Available Not Available trazodone 50 mg tablet Take 1 tablet every day by oral route at bedtime. active Not Available Not Available No t Available azithromyc in 250 mg tablet Take 2 TABLEts the first day then 1/day active Not Available Not Available No t Available fluconazol e 150 mg tablet active Not Available Not Available Not Available hydrocodon e 5 mg-acetami nophen 325 mg tablet TAKE ONE TABLET BY MOUTH EVERY 4 TO 6 HOURS NEEDED FOR PAIN 05/21 completed Not Available Not Available Not Available Keflex 500 mg capsule Take 1 capsule twice a day by oral route for 7 days. 12/02 completed Not Available Not Available Not Available naltrexone 50 mg tablet TAKE 1 TABLET BY MOUTH EVERY DAY 05/21 completed Not Available Not Available Not Available betamethas one, augmented 0.05 % topical cream APPLY TOPICALLY TO RASH TWICE DAILY FOR 4 WEEKS FOR FLARES. DO NOT APPLY TO FACE MUST TAKE 2 WEEK BREAK BEFORE RESARTING 05/21 completed Not Available Not Available Not Available clonazepam 1 mg tablet 04/18 completed Not Available Not Available Not Available penicillin V potassium 500 mg tablet TAKE 1 TABLET BY MOUTH FOUR TIMES DAILY UNTIL ALL TAKEN 05/21 completed Not Available Not Available Not Available acetaminop hen 300 mg-codeine 30 mg tablet TAKE 1 TABLET BY MOUTH EVERY 4 HOURS NEEDED FOR PAIN 04/18 completed Not Available Not Available Not Available tramadol 50 mg tablet active Not Available Not Available Not Available amitriptyl ine 50 mg tablet TAKE 2 TABLETS BY MOUTH EVERY DAY AT BEDTIME active Not Available Not Available No t Available phendimetr azine tartrate ER 105 mg capsule,ex tended release active Not Available Not Available Not Available Kenalog 40 mg/mL suspension for injection Take 1 mL every day by injection route. active Not Available Not Available No t Available prednisone 10 mg tablets in a dose pack Take 1 tab by mouth, 3 times a day for 3 daysTake 1 tab by mouth 2 times a day for 2 daysTake 1 tab by mouth once a day for 1 day 05/21 completed Not Available Not Available Not Available alprazolam 0.5 mg tablet 05/21 completed Not Available Not Available Not Available propranolo l 10 mg tablet TAKE 1 TO 3 TABLETS BY MOUTH EVERY DAY FOR 7 DAYS NEEDED FOR ANXIETY 05/21 completed Not Available Not Available Not Available amoxicilli n 875 mg tablet TAKE 1 TABLET BY MOUTH TWICE DAILY 05/21 completed Not Available Not Available Not Available alprazolam 0.25 mg tablet TAKE 1 TO 2 TABLETS BY MOUTH EVERY NIGHT AT BEDTIME NEEDED 03/13 completed Not Available Not Available Not Available citalopram 20 mg tablet active Not Available Not Available Not Available amitriptyl ine 25 mg tablet TAKE 1 TABLET BY MOUTH EVERY DAY AT BEDTIME active Not Available Not Available No t Available Kenalog 10 mg/mL suspension for injection In office injection administe red by the provider 05/21 completed ND: 0003-0 494-20 Not Available Not Available Not Available baclofen 10 mg tablet 05/04 completed Not Available Not Available Not Available ropinirole 0.5 mg tablet Take 1 tablet every day by oral route at bedtime for 30 days. active faxed Not Available Not Available No t Available buspirone 10 mg tablet TAKE 1 TABLET BY MOUTH TWICE DAILY 05/21 completed Not Available Not Available Not Available gabapentin 300 mg capsule TAKE 1 CAPSULE BY MOUTH THREE TIMES DAILY active Not Available Not Available No t Available diclofenac sodium 75 mg tablet,del ayed release active Not Available Not Available Not Available montelukas t 10 mg tablet Take 1 tablet every day by oral route. 03/13 completed Not Available Not Available Not Available hydrocodon e 5 mg-acetami nophen 500 mg tablet active Not Available Not Available No t Available zolpidem 5 mg tablet TAKE 1 TABLET BY MOUTH EVERY NIGHT AT BEDTIME 03/13 completed Not Available Not Available Not Available cefuroxime axetil 500 mg tablet TAKE 1 TABLET BY MOUTH TWICE DAILY FOR 7 DAYS 05/21 completed Not Available Not Available Not Available polyethyle ne glycol 3350 17 gram/dose oral powder MIQ 17 G INTO 4 - 8 OZ WATER AND DRINK QD active Not Available Not Available No t Available levofloxac in 500 mg tablet TK 1 T PO QD FOR 7 DAYS 03/13 completed Not Available Not Available Not Available zolpidem 10 mg tablet TAKE 1 TABLET BY MOUTH EVERY DAY AT BEDTIME NEEDED active Not Available Not Available No t Available methylpred nisolone 4 mg tablets in a dose pack FOLLOW PACKAGE DIRECTION S 05/21 completed Not Available Not Available Not Available propranolo l 20 mg tablet TAKE 1 TABLET BY MOUTH EVERY DAY active Not Available Not Available No t Available cefdinir 300 mg capsule TK ONE C PO Q 12 H active Not Available Not Available No t Available fluticason e propionate 50 mcg/actuat ion nasal spray,susp ension SHAKE LIQUID AND USE 2 SPRAYS IN EACH NOSTRIL DAILY 05/21 completed Not Available Not Available Not Available spironolac tone 50 mg tablet active Not Available Not Available Not Available amoxicilli n 875 mg-potassi um clavulanat e 125 mg tablet TAKE 1 TABLET BY MOUTH EVERY 12 HOURS FOR 10 DAYS 05/21 completed Not Available Not Available Not Available nabumetone 500 mg tablet active Not Available Not Available Not Available escitalopr am 10 mg tablet TAKE 1 TABLET BY MOUTH EVERY DAY 05/21 completed Not Available Not Available Not Available escitalopr am 20 mg tablet TAKE 1 TABLET BY MOUTH EVERY DAY active Not Available Not Available No t Available rosuvastat in 10 mg tablet TAKE 1 TABLET BY MOUTH EVERY DAY 05/21 completed Not Available Not Available Not Available Lunesta 2 mg tablet active Not Available Not Available No t Available zolpidem ER 6.25 mg tablet,ext ended release,mu ltiphase TAKE 1 TABLET BY MOUTH EVERY DAY AT BEDTIME 06/27 completed Not Available Not Available Not Available lidocaine (PF) 10 mg/mL (1 %) injection solution In office injection administe red by the provider 05/21 completed [facility]: [id number] Not Available Not Available Not Available Amrix 15 mg capsule,ex tended release 04/18 completed Not Available Not Available Not Available Suprep Bowel Prep Kit 17.5 gram-3.13 gram-1.6 gram oral solution 03/13 completed Not Available Not Available Not Available Butrans 20 mcg/hour transderma l patch active Not Available Not Available Not Available buprenorph ine 5 mcg/hour weekly transderma l patch APPLY 1 PATCH TOPICALLY TO THE SKIN 1 TIME A WEEK 05/21 completed Not Available Not Available Not Available buprenorph ine 10 mcg/hour weekly transderma l patch UNWRAP AND APPLY 1 PATCH TO SKIN ONCE A WEEK 05/21 completed Not Available Not Available Not Available Nucynta ER 50 mg tablet,ext ended release active Not Available Not Available Not Available Relistor 12 mg/0.6 mL subcutaneo us syringe 04/18 completed Not Available Not Available Not Available Auvi-Q 0.3 mg/0.3 mL injection, auto-injec tor 04/18 completed Not Available Not Available Not Available Otezla 30 mg tablet active Not Available Not Available No t Available Grastek 2,800 BAU sublingual tablet 04/18 completed Not Available Not Available Not Available buprenorph ine 7.5 mcg/hour weekly transderma l patch APPLY 1 PATCH TOPICALLY TO THE SKIN 1 TIME A WEEK 05/21 completed Not Available Not Available Not Available Movantik 12.5 mg tablet 02/13 completed Not Available Not Available Not Available Movantik 25 mg tablet Take 1 tablet every day by oral route for 30 days. 03/13 completed Not Available Not Available Not Available Shingrix (PF) 50 mcg/0.5 mL intramuscu lar suspension , kit ADM 0.5ML IM UTD 05/21 completed Not Available Not Available Not Available Vitals Date Recorded Body mass index (BMI) Body height Body weight Provider Name and Address Organization Details Last Updated DateTime 04/08/2020 30.4 kg/m2 157.48 cm 55597.33 g Not Available [facility] 04/08/2022 00:54:18 Date Recorded Body height Body mass index (BMI) Body weight Provider Name and Address Organization Details Last Updated DateTime 05/21/2022 157.48 cm 30.2 kg/m2 07545.74 g MIK Mccray [place] [facility] 05/21/2022 10:29:28 Date Recorded Body mass index (BMI) Body height Body weight Provider Name and Address Organization Details Last Updated DateTime 10/31/2020 32.9 kg/m2 157.48 cm 53323.63 g Not Available [facility] 04/08/2022 00:54:18 Date Recorded Body mass index (BMI) Body height Body weight Provider Name and Address Organization Details Last Updated DateTime 12/12/2020 32 kg/m2 157.48 cm 27128.66 g Not Available [facility] 04/08/2022 00:54:18 Social History None recorded. 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 Family History Nothing Reported. Medical History No medical history recorded. Gynecological HistoryNo gynecological history recorded. Obstetrics History GPAL:G 0 P 0 0 0 0 Past Encounters Encounter ID Performer Location Encounter Start Date Encounter Closed Date Diagnosis/Indication Diagnosis SNOMED-CT Code Diagnosis ICD10 Code Diagnosis Note [id number] ADRIANA Alvarez [facility] [place] [address] [place] [address] 04/08/2020 00:00:00 04/08/2020 10:33:48 [id number] Margot Stark MD [facility] [place] [address] [place] [address] 10/31/2020 00:00:00 10/31/2020 10:28:17 [id number] Margot Stark MD [facility] [place] [address] [place] [address] 12/12/2020 00:00:00 12/12/2020 09:27:19 [id number] Margot Stark MD [facility] [place] [address] [place] [address] 05/21/2022 10:18:29 05/21/2022 12:52:47 Pain of left knee joint 0950506388 61592 M25.562 Tear of me dial meniscus of knee 257177058 S83.242D Health Concerns Section Related Observation LastModified by Organization Detai ls LastModified Time None Recorded Concern Status LastModified by Organization Details LastModified Time None Recorded Advance Directives Directive None Recorded Payers Insurance Date Sequence Insurance Name Policy Number Policy Louis Covered Member ID Louis Member ID Guarantor Name 07/20/2022 1 [place] [id number] Nikunj Loyd [id number] Carline Loyd Notes Date Note Type Note Provider Name and Address Organization Details Recorded Time 10/31/2020 text/html KneeReported bypatient.Location :left; anterior; lateral Quality:aching; burning; stabbing; deep; occasional Severity:moderate Duration:continuou s since onset Timing:chronic; abrupt; recurrent; intermittent episodes lasting: Context:fall Alleviating Factors:sitting; lying down; rest; elevation; exercise; stretching Aggravating Factors:walking; twisting; bending/squatting Associated Symptoms:swelling; warmth;popping/cli cking Previous PT:helped a little Not Available [facility] 10/31/2020 10:28:17 12/12/2020 text/html KneeReported bypatient.Location :left; anterior; lateral Quality:aching; burning; stabbing; deep; occasional Severity:moderate Duration:continuou s since onset Timing:chronic; abrupt; recurrent; intermittent episodes lasting: Context:fall Alleviating Factors:sitting; lying down; rest; elevation; exercise; stretching Aggravating Factors:walking; twisting; bending/squatting Associated Symptoms:swelling; warmth;popping/cli cking Previous PT:helped a little Not Available [facility] 12/12/2020 09:27:19 05/21/2022 text/html Patient returns knee pain left I told her urine half ago she had a meniscal tear and she tried to get by without it the pain is only getting worse at this time she has decided she needs to consider arthroscopic intervention. Margot Stark MD [address] [place] [address], [place] [address], [place], [address], [facility] 05/21/2022 12:22:16 OBGyn Episode No OBEpisode recorded.
--- OUTSIDE RECORDS SUMMARY | 2024-08-18 13:22 | XMS_ITS | Patient Health Record ---
Author Organization [facility] Address [address] [place] [address] Care Team Providers Care Chief Relay Tester Name Role Phone Susana Giraldo Primary Care Provider Allergies No Known Allergies Reason For Referral No Information Medications Medication SIG (Take, Route, Frequency, Duration) Notes Start Date End Date Status Ambien 10 MG 1 tablet at bedtime as needed Orally Once a day Active Propranolol HCl 20 MG TAKE 1 TABLET BY MOUTH EVERY DAY; Duration: 90 Active Requip XL Active Lexapro 20 MG 1.5 tablet Orally Once a day; Duration: 30 days Active Gabapentin 1600mg per day Acti ve Melatonin Active Naltrexone Active Butrans 7.5 MCG/HR 1 patch to skin Transdermal chronic back pain Not-Taking Amitriptyline HCl 50 MG 1 tablet at bedtime Orally Once a day; Duration: 30 day(s) Not-Taking Vistaril 25 MG 1-2 capsule as needed Orally once daily as needed for anxiety; Duration: 14 days Not-Taking Social History Tobacco Use: Social History Observation Description Date Details (start date - stop date) Never Smoker NA - NA Dont use, Tobacco Use/Smoking Question Answer Notes Are you a nonsmoker Section Notes: [id number] 11/26/2020 10/04/2020 Zolpidem Tartrate 30 30 10MG [id number] [email or web address] [id number] 11/05/2020 11/04/2020 Buprenorphine 4 28 5 MCG/1 HR Elif Torres ([facility]) - [id number] [email or web address] [id number] 11/02/2020 10/04/2020 Zolpidem Tartrate 30 30 10MG NA Eliseo Leslie [facility] [id number] [facility] [place] [place] [id number] 10/04/2020 10/04/2020 Zolpidem Tartrate 30 30 10MG NA Eliseo Leslie [facility] [id number] [facility] [place] [place] [id number] 09/25/2020 09/18/2020 Buprenorphine 4 28 7.5 MCG/1 HR Elif Torres ([facility]) - [id number] [facility] [place] [id number] 09/03/2020 04/17/2020 Zolpidem Tartrate 30 30 10MG [id number] 02/28/2021 10/04/2020 Zolpidem Tartrate 30.0 30.0 10MG NA [facility] [id number] [facility] [place] [place] NA 5 [place] 1 [id number] 01/26/2021 10/04/2020 Zolpidem Tartrate 30.0 30.0 10MG NA [facility] [id number] [facility] [place] [place] NA 5 [place] 1 [id number] 12/27/2020 10/04/2020 Zolpidem Tartrate 30.0 30.0 10MG Eliseo Nevarez [facility] [id number] [facility] [place] [place] NA 5 [place] 1 [id number] 11/26/2020 10/04/2020 Zolpidem Tartrate 30.0 30.0 10MG NA [facility] [id number] [facility] [place] [place] NA 5 [place] 1 [id number] 11/05/2020 11/04/2020 Buprenorphine 4.0 28.0 5 MCG/1 HR KIMBERLEY Siddiqi Problems Problem Type SNOMED Code ICD Code Onset Dates Problem Status W/U Status Risk Notes Problem Generalized anxiety disorder (52945813) Generalized anxiety disorder (F41.1) Active confirmed Problem Anxiety (39446983) Anxiety (F41.9) Active confirmed Problem Stress and adjustment reaction (disorder) (340689741) Adjustment reaction to chronic stress (F43.8) Active confirmed Problem Alcohol abuse (19018673) Alcohol use disorder, mild, abuse (F10.10) Active confirmed Problem Moderate recurrent major depression (51152577) Depression, major, recurrent, moderate (F33.1) Active confirmed Plan Of Treatment No Information Medical (General) History Medical History History ICD Code chronic back pain Surgical History Surgery Date(Month/Year) Hospitalization History Reason Date(Month/Year) [facility] 05/2020
--- OUTSIDE RECORDS SUMMARY | 2024-08-18 13:22 | XMS_ITS | Clinical Summary ---
Author Organization [facility] Address [address] [place] [address] Care Team Providers Care Prospecting Driller Name Role Phone Hai Aguirre MD Primary Care Provider [phone] Source Comments [facility],non-owned Affiliates and Associated Physician Practices is amultiple site organization consisting of ambulatory clinics and hospital sitesin [place], [place], [place] and [place]. This disclosure is being madepursuant to the Care Everywhere program and may not contain all information available regarding this patient. Last updated 17.[employer] [facility] Allergies No known active allergies Medications * Be aware that medications may not be up to date on this document. Alwaysverify current medications with the patient. diclofenac sodium (VOLTAREN) 75 MG tablet TBEC Take 1 Tab by mouth 2 times daily. 60 Tab 1 09/07/2012 Active escitalopram (LEXAPRO) 10 MG tablet Take 10 mg by mouth once daily Active Social History Tobacco Use Types Packs/Day Years Used Date Smoking Tobacco: Never Smokeless Tobacco: Never Alcohol Use Standard Drinks/Week Comments Never 0 (1 standard drink = 0.6 oz pur e alcohol) AUDIT-C Answer Date Recorded Frequency of Alcohol Consumption Never 02/15/2019 Average Number of Drinks Not on file 020 Frequency of Binge Drinking Not on file 09/2019 Comments Unknown Sex and Gender Information Value Date Recorded Sex Assigned at Not on file Legal Sex Female 2:40 PM CDT Gender Identity Not on file Sexual Orientation Not on file Last Filed Vital Signs Vital Sign Reading Time Taken Comments Blood Pressure 128/84 02/15/2019 4:19 PM OIL GAUGER Pulse 87 02/15/2019 4:19 PM OIL GAUGER Temperature 37.1 C (98.8 F) 02/15/2019 4:19 PM OIL GAUGER Respiratory Rate 16 02/15/2019 4:19 PM OIL GAUGER Oxygen Saturation 98% 02/15/2019 4:19 PM OIL GAUGER Inhaled Oxygen Concentration - - Weight 59 kg (130 lb) 02/15/2019 4:19 PM OIL GAUGER Height 157.5 cm (5' 2) 02/15/2019 4:19 PM OIL GAUGER Body Mass Index 23.78 02/15/2019 4:19 PM OIL GAUGER Plan of Treatment Health Maintenance Due Date Last Done Comments COLOGUARD (AGES 45-75) - COL ON CA SCREENING 1968 COLON MONITORING 1968 COLONOSCOPY - COLON CA SCREENING 1968 CT COLONOGRAPHY - COLON CA SCREENING 1968 Colorectal Cancer Screening 1968 FIT - COLON CA SCREENING 1968 FLEX SIG - COLON CA SCREENING 1968 LIPID TESTING 1968 MAMMOGRAM 1968 HIV SCREENING 04/13/1983 HEPATITIS C SCREENING 04/08/1986 DTAP/TDAP/TD VACCINES (1 - Tdap) 04/13/1987 HEPATITIS B VACCINE (1 of 3 - 19+ 3-dose series) 04/13/1987 PNEUMOCOCCAL VACCINE 50+ (1 of 1 - PCV) 2018 ZOSTER VACCINE (1 of 2) 2018 COVID-19 VACCINE (1 - 2023-2 5 season) 2023 DEPRESSION SCREENING 02/09/2024 INFLUENZA VACCINE (#1) 2024 HIB VACCINE Aged Out No longer eligi ble based on patient's age to complete this topic HPV VACCINE Aged Out No longer eligi ble based on patient's age to complete this topic MENINGOCOCCAL (Group B) VACC INE SHARED DECISION-MAKING Aged Out No longer eligibl e based on patient's age to complete this topic MENINGOCOCCAL GROUPS A/C/Y/W VACCINE Aged Out No longer eligible b ased on patient's age to complete this topic Insurance [facility] Care Teams Prospecting Driller Relationship Specialty Start Date End Date Hai Aguirre MD PCP - General Internal Medicine 09/07/12
--- OUTSIDE RECORDS SUMMARY | 2024-08-18 13:22 | XMS_ITS | Referral Summary ---
Author Organization [facility] Address [address] [place] [address] Care Team Providers Care Resident Care Manager Rn Name Role Phone Eliseo Leslie MD Primary Care Provider [phone] Encounters Date Type Department Care Team Description 08/08/2024 Results Follow-Up [facility] [address] 5th [place] [address] [place] [address] Tariq Pandya NP Vitamin D 25 hydroxy 08/07/[address] [place] [id number] Earl Olvera MD 08/07/2024 10:45 AM CDT Lab [facility] at [address] [address] Osteopenia of multiple sites 08/07/2024 9:30 AM CDT Clinical Support [address] [place] [address] Osteopenia of multiple sites 08/07/2024 10:00 AM CDT Office Visit [address] [place] [id number] Earl Olvera MD Osteopenia of multiple sites (Primary Dx); Vitamin D insufficiency from Last 3 Months Allergies No known active allergies Medications amitriptyline [...] a week for 4 weeks 8 capsule 4 Active mv-min/folic/vit K/lycop/coQ10 (DAILY MULTIVITAMIN ORAL) Take by mouth Active Active Problems Problem Noted Date Diagnosed Date Screening for malignant neoplasm of colon 2023 Menopause 04/30/2023 Osteopenia of multiple sites 04/29/2023 Social History Tobacco Use Types Packs/Day Years [...] on file Legal Sex Female 3:22 AM 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 [employer] Gender Identity Not on file Sexual Orientation Not on file Last Filed Vital Signs Vital Sign Reading Time Taken Comments Blood Pressure 148/86 01/12/2024 8:50 AM 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 Pulse 80 01/12/2024 8:50 AM 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 Temperature 36.5 C (97.7 F) 01/12/2024 7:43 AM 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 Respiratory Rate 17 01/12/2024 8:50 AM 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AM Oxygen Saturation 100% 01/12/2024 8:50 AM 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 Inhaled Oxygen Concentration - - Weight 68.3 kg (150 lb 8.8 oz) 08/07/2024 9:39 A M CDT Height 150.5 cm (4' 11.25) 08/07/2024 9:39 AM C DT Body Mass Index 30.15 08/07/2024 9:39 AM CDT Plan of Treatment Not on file Procedures Procedure Name Priority Date/Time Associated Diagnosis Comments VITAMIN D 25 HYDROXY Routine 08/07/2024 10:20 AM CDT Osteopenia of multiple sites DEXA TBS AXIAL SKELETON BONE DENSITY 1 OR MORE SITES Schedule Routine, Read Routine (OP Routine) 08/07/2024 9:33 AM CDT Osteopenia of multiple sites COLONOSCOPY 01/12/2024 7:38 AM 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 [employer]AM from Last 3 Months or Most Recently Relevant to Health Maintenance Results * Vitamin D 25 hydroxy (08/07/2024 10:20 AM CDT) Vitamin D 25-OH 50 30 - 80 ng/mL Comment:Testing performed by : [facility], [address] [place] [address] Blood 08/07/2024 10:2 0 AM CDT 08/07/2024 10:50 AM CDT us Tariq Pandya ENVIRONMENTAL ADVISOR LAB BLOOD ORDERABLES Final Re sult [facility] [id number] [facility]. [place] [address] * Dexa TBS Axial Skeleton Bone Density 1 or more sites (08/07/2024 9:33 AM CDT) Anatomical Region Laterality Modality Wrist, Body N/A Radiographic Eliz ging Narrative 08/07/2024 10:21 AM CDT Patient Name: Marcella Loyd Date of : 1970 Date of scan: 08/07/2024 Bone mineral density was performed on a [employer] Discovery Densitometer. Based on machine cross-calibration and [...] mineral density scan were prepared by Shireen Thakkar(R) LEONILA who is accredited by the International Society of Clinical Densitometry. The overall patient assessment and scan interpretation were performed by Earl Olvera M.D. who is certified by the International Society of Clinical Densitometry. [id number] Linda Moy MD IM DXA PROCEDURES Final Result * Colonoscopy (01/12/2024 7:38 AM 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) Anatomical Region Laterality Modality Other Narrative Procedure Note Karri Santiago MD - 01/12/2024 7:38 AM CST ENDOSCOPY LAB Patient Name: Marcella Loyd Procedure Date: 01/12/2024 7:38 AM Admit Type: Outpatient Room: [facility] 2 Date of : 1970 Instrument Name: [id number] Gender: Female Note Status: Finalized Procedure: Colonoscopy Indications: Colon cancer screening in patient at increasedrisk: Family history of colorectal cancer in multiple [...] In: 8:17:20 AM Scope Out: 8:30:20 AM Karri Santiago MD ENDOSCOPY PROCEDURES Final Result from Last 3 Months or Most Recently Relevant to Health Maintenance Insurance [employer] [place] [place] [facility] Advance Directives For more information, please contact: [phone] * Full Code (Latest Code Status on File) Date Activated Date Inactivated Comments 01/12/2024 7:39 AM 01/12/2024 1:06 PM Care Teams Resident Care Manager Rn Relationship Specialty Start Date End Date Eliseo Leslie MD [facility] [place] [address] PCP - General 09/18/19
--- OUTSIDE RECORDS SUMMARY | 2024-08-18 13:22 | XMS_ITS | Clinical Summary ---
Author Organization [facility] Address [address] [place] [address] Care Team Providers Care Window Machine Operator Name Role Phone Unavailable Primary Care Provider Unavailabl e Social History Tobacco Use Types Packs/Day Years Used Date Smoking Tobacco: Never Assessed Comments Unknown Sex and Gender Information Value Date Recorded Sex Assigned at Not on file Legal Sex Female 9:18 PM CDT Gender Identity Not on file Sexual Orientation Not on file Plan of Treatment Health Maintenance Due Date Last Done Comments Cervical Cancer Screening Pa p Smear (Age 30 to 64) Every 3 Years 1968 Colorectal Cancer Screening Colonoscopy (10 Years) 1968 Annual Physical 04/13/1971 Hepatitis C 1986 DTaP, Tdap and Td Vaccines ( 1 - Tdap) 04/13/1987 Hepatitis B Vaccines (1 of 3 - 19+ 3-dose series) 04/13/1987 Cervical Cancer Screening Pa p with HPV Testing (Age 30 to 64) Every 5 Years 1998 Cervical Cancer Screening with HPV 1998 Mammogram Screening 2008 Pneumococcal Vaccine: 50+ Ye ars (1 of 1 - PCV) 2018 Zoster Vaccines (1 of 2) 2018 COVID-19 Vaccine (2023-2 5 season) 2023 Meningococcal B Vaccine Aged Out No l onger eligible based on patient's age to complete this topic Meningococcal Vaccine Aged Out No jered nathanael eligible based on patient's age to complete this topic RSV Immunizations Under 20 Months Aged Out No longer eligible based on patient's age to complete this topic
[2024-08-18 13:33] LABS: INR 1.0; Prothrombin Time 12.7 Seconds (11.1-14.7)
[2024-08-18 13:42] LABS: Alanine Aminotransferase 25 U/L (6-35); Albumin Level 4.2 g/dL (3.5-5.1); Alkaline Phosphatase 57 U/L (38-126); Anion Gap 9 mmol/L (4-12); Aspartate Amino Transferase 39 U/L (14-36); Bilirubin,Total 0.6 mg/dL (0.2-1.3); Blood Urea Nitrogen 17 mg/dL (7-17); Calcium 8.7 mg/dL (8.4-10.2); Carbon Dioxide 26 mmol/L (22-30); Chloride 106 mmol/L (98-107); Estimated CRCL calculation 57 ml/min; Estimated Glomerular Filt Rate > 60; Glucose 97 mg/dL (65-110); Potassium 4.0 mmol/L (3.4-5.0); Sodium 141 mmol/L (137-145); Total Protein 6.9 g/dL (6.3-8.2)
--- NOTE | 2024-08-18 14:16 | ED.AMS ---
HPI - Altered Mental Status General Chief Complaint: Altered Mental Status <Seamus Polanco MD - Last Filed: 08/18/24 18:51> Stated Complaint: AMS, possible OD, combative <Seamus Polanco MD - Last Filed: 08/18/24 18:51> Time Seen by Provider: 08/18/24 13:11 <Seamus Polanco MD - Last Filed: 08/18/24 18:51> History of Present Illness HPI narrative: Patient is a 54-year-old female who presents to the ER combative and intoxicated. Will not provide any history. She has no reports of pain. She will not tell me how much alcohol she has been drinking or if she has used any drugs. She is trying to punch in by staff and has been placed in 4 point hard restraints for safety of those around her and for her own safety. She is not redirectable. <Seamus Polanco MD - Last Filed: 08/18/24 18:51> Related Data Home Medications: Home Medications ?Medication ?Instructions ?Recorded ?Confirmed ?Last Taken ?Type amitriptyline 50 mg tablet 100 mg PO HS 05/21/20 05/21/20 Unknown History buprenorphine 10 mcg/hour weekly 10 mcg transdermal WEEKLY 05/21/20 05/21/20 Unknown History transdermal patch escitalopram oxalate 20 mg tablet 20 mg PO DAILY 05/21/20 05/21/20 Unknown History ropinirole 1 mg tablet 1 mg PO HS 05/21/20 05/21/20 Unknown History zolpidem 10 mg tablet 10 mg PO HS 05/21/20 05/21/20 Unknown History <Seamus Polanco MD - Last Filed: 08/18/24 18:51> Allergies/Adverse Reactions: Allergies Allergy/AdvReac Type Severity Reaction Status Date / Time No Known Allergies Allergy Verified 05/21/20 16:16 <Seamus Polanco MD - Last Filed: 08/18/24 18:51> Review of Systems Review of Systems: ROS unobtainable: Yes other (Combative and intoxicated) <Seamus Polanco MD - Last Filed: 08/18/24 18:51> [facility] Past Medical History Medical History: Medical History (Updated 08/18/24 @ 18:51 by Seamus Polanco MD) Insomnia Depression Restless leg syndrome <Seamus Polanco MD - Last Filed: 08/18/24 18:51> Surgical History Surgical History: Surgical History (Updated 05/21/20 @ 18:20 by Alee Bains, SPRINKLER INSPECTOR) No pertinent past surgical history <Seamus Polanco MD - Last Filed: 08/18/24 18:51> Family History Family History: Family History (Updated 05/21/20 @ 18:21 by Alee Bains, SPRINKLER INSPECTOR) Father Osteoarthritis Mother Osteoarthritis <Seamus Polanco MD - Last Filed: 08/18/24 18:51> Social History Social History: Social History (Updated 05/21/20 @ 18:22 by Alee Bains, SPRINKLER INSPECTOR) Social History: The patient recently lost her job so she is unemployed. The patient is . She desires to have her is a durable power attorney law clerk for healthcare. The patient is a full code. She has 2 children appoint a girl. Lifelong nonsmoker. The patient states that she rarely drinks but she had some vodka today. No marijuana or illicit drug. She tried CBD in the past and does nothing for her. Smoking status: Never smoker Alcohol intake: current Substance use type: painkillers and prescription drug Other substance usage details: RSO oil Gender identity (if verbalized by the patient): Female Spiritual care concerns: No <Seamus Polanco MD - Last Filed: 08/18/24 18:51> Exam Narrative: GENERAL: Intoxicated and aggressive, well-nourished. HEAD: Normocephalic, atraumatic. EYES: PERRL and EOMI. ENT: Mucous membranes moist. CHEST: Clear to auscultation. No respiratory distress. HEART: Regular rate and rhythm. Normal peripheral pulses. ABDOMEN: Soft, nontender, nondistended. EXTREMITIES: Normal range of motion. No edema. SKIN: Warm, dry, no rash. NEURO: Awake count alert, oriented to self and place, without provide any additional information.. <Seamus Polanco MD - Last Filed: 08/18/24 18:51> Course Course Emergency Course: 1845: Multiple re-evaluations and attempts to bring patient out of hard restraints. Each time is met with aggressive and violent behavior. Patient has required 2 separate doses of Ativan 1 mg to help keep her from screaming and fighting. Patient is now able to be out of a single lock restraints as she continues to become more sober. Her has arrived as well and was sitting at the bedside. <Seamus Polanco MD - Last Filed: 08/18/24 18:51> Vital Signs Vital signs: Vital Signs Temperature 97.8 F 08/18/24 12:36 Pulse Rate 80 08/18/24 12:36 Respiratory Rate 20 08/18/24 12:36 Blood Pressure 150/94 H 08/18/24 12:36 Pulse Oximetry 96 08/18/24 12:36 Oxygen Delivery Room Air 08/18/24 12:36 Temperature 97.8 F 08/18/24 12:36 Pulse Rate 83 08/18/24 19:15 Respiratory Rate 12 08/18/24 19:15 Blood Pressure 134/75 08/18/24 17:46 Pulse Oximetry 97 08/18/24 17:46 Oxygen Delivery Room Air 08/18/24 12:36 <Seamus Polanco MD - Last Filed: 08/18/24 18:51> Vital Signs Temperature 97.8 F 08/18/24 12:36 Pulse Rate 80 08/18/24 12:36 Respiratory Rate 20 08/18/24 12:36 Blood Pressure 150/94 H 08/18/24 12:36 Pulse Oximetry 96 08/18/24 12:36 Oxygen Delivery Room Air 08/18/24 12:36 Temperature 97.8 F 08/18/24 12:36 Pulse Rate 83 08/18/24 19:15 Respiratory Rate 12 08/18/24 19:15 Blood Pressure 134/75 08/18/24 17:46 Pulse Oximetry 97 08/18/24 17:46 Oxygen Delivery Room Air 08/18/24 12:36 <Maya Virgen MD - Last Filed: 08/18/24 22:32> MDM - Altered Mental Status MDM Narrative Medical decision making narrative: Patient was signed out to me by Dr. Polanco pending clinical sobriety and reassessment. Patient's repeat ethanol level was noted to be 78. Patient is now alert and awake. Common cooperative, answering my questions appropriately. She is alert tenderness to person, place, time and situation. States that she did drink too much today and got too intoxicated. Denies taking any pills or any drugs. His the the usual took was alcohol. Denies any active suicidal or homicidal ideations. Patient's is present with her at bedside. They both feel comfortable going home. She was discharged in stable condition to the care of her . Is to follow up with her primary physician in 3-5 days and return to the ED if any new or worsening symptoms develop. <Maya Virgen MD - Last Filed: 08/18/24 22:32> Lab Data Result diagrams: 08/18/24 15:14 08/18/24 13:07 <Seamus Polanco MD - Last Filed: 08/18/24 18:51> Labs: Lab Results 08/18/24 08/18/24 08/18/24 Range/Units 13:07 13:15 15:14 WBC 8.1 (4.5-10.0) K/mm3 RBC 4.52 (4.2-5.4) M/mm3 Hgb 13.9 (12.0-15.0) g/dL Hct 42.8 (37.0-47.0) % MCV 94.7 (80-100) fl MCH 30.8 (26-34) pg MCHC 32.5 (32-36) g/dl RDW 13.0 (11.5-14.5) % Plt Count 299 (150-375) k/mm3 MPV 9.5 (7.4-10.4) fl Immature Gran % (Auto) 0.4 (0-0.5) % Neut % (Auto) 72.9 (45.5-73.1) % Lymph % (Auto) 20.3 (18.3-44.2) % Thurston % (Auto) 4.6 (2.6-8.5) % Eos % (Auto) 0.4 (0-4.4) % Baso % (Auto) 1.4 H (0.2-1.2) % Lymph # (Auto) 1.65 (0.9-3.2) K/mm3 Thurston # (Auto) 0.4 (0.1-0.6) K/mm3 Eos # (Auto) 0.0 (0-0.3) K/mm3 Baso # (Auto) 0.1 (0.0-0.1) K/mm3 Abs Immat Gran (auto) 0.03 (0.00-0.031) K/mm3 Absolute Neuts (auto) 5.9 (1.3-6.7) K/mm3 Absolute Nucleated RBC 0.000 (0.0-0.012) K/mm3 Nucleated RBC % 0.0 (0.0-0.2) % PT 12.7 (11.1-14.7) Seconds INR 1.0 APTT 21.5 L (22.3-36.8) Seconds Sodium 141 (137-145) mmol/L Potassium 4.0 (3.4-5.0) mmol/L Chloride 106 (98-107) mmol/L Carbon Dioxide 26 (22-30) mmol/L Anion Gap 9 (4-12) mmol/L BUN 17 (7-17) mg/dL Creatinine 0.90 (0.7-1.0) mg/dL Estim Creat Clear Calc 57 ml/min Estimated GFR > 60 (59 - ) Glucose 97 (65-110) mg/dL Calcium 8.7 (8.4-10.2) mg/dL Total Bilirubin 0.6 (0.2-1.3) mg/dL AST 39 H (14-36) U/L ALT 25 (6-35) U/L Alkaline Phosphatase 57 (38-126) U/L Total Protein 6.9 (6.3-8.2) g/dL Albumin 4.2 (3.5-5.1) g/dL TSH (Reflex) 0.568 (0.465-4.68) uIU/mL Urine Color Yellow (Yellow) Urine Appearance Clear (Clear) Urine pH 5.5 (5.0-9.0) Ur Specific Shepherd 1.011 (1.001-1.035) Urine Protein Negative (Negative) mg/dL Urine Glucose (UA) Negative (Negative) mg/dL Urine Ketones Negative (Negative) mg/dL Ur Blood (Man) Negative (Negative) Urine Nitrate Negative (Negative) Urine Bilirubin Negative (Negative) Urine Urobilinogen 0.2 (<2.0) mg/dL Leukocyte Esterase Rfl Negative (Negative) CHOLO/UL POC Urine HCG, Qual Negative (Negative) Urine Opiates Screen Negative (Negative) Urine Methadone Screen Negative (Negative) Ur Barbiturates Screen Negative (Negative) Ur Phencyclidine Scrn Negative (Negative) Ur Amphetamine Screen Negative (Negative) U Benzodiazepines Scrn Negative (Negative) Urine Cocaine Screen Negative (Negative) U Cannabinoids Screen Negative (Negative) Ethyl Alcohol 235 (<10) mg/dL 08/18/24 Range/Units 21:29 WBC (4.5-10.0) K/mm3 RBC (4.2-5.4) M/mm3 Hgb (12.0-15.0) g/dL Hct (37.0-47.0) % MCV (80-100) fl MCH (26-34) pg MCHC (32-36) g/dl RDW (11.5-14.5) % Plt Count (150-375) k/mm3 MPV (7.4-10.4) fl Immature Gran % (Auto) (0-0.5) % Neut % (Auto) (45.5-73.1) % Lymph % (Auto) (18.3-44.2) % Thurston % (Auto) (2.6-8.5) % Eos % (Auto) (0-4.4) % Baso % (Auto) (0.2-1.2) % Lymph # (Auto) (0.9-3.2) K/mm3 Thurston # (Auto) (0.1-0.6) K/mm3 Eos # (Auto) (0-0.3) K/mm3 Baso # (Auto) (0.0-0.1) K/mm3 Abs Immat Gran (auto) (0.00-0.031) K/mm3 Absolute Neuts (auto) (1.3-6.7) K/mm3 Absolute Nucleated RBC (0.0-0.012) K/mm3 Nucleated RBC % (0.0-0.2) % PT (11.1-14.7) Seconds INR APTT (22.3-36.8) Seconds Sodium (137-145) mmol/L Potassium (3.4-5.0) mmol/L Chloride (98-107) mmol/L Carbon Dioxide (22-30) mmol/L Anion Gap (4-12) mmol/L BUN (7-17) mg/dL Creatinine (0.7-1.0) mg/dL Estim Creat Clear Calc ml/min Estimated GFR (59 - ) Glucose (65-110) mg/dL Calcium (8.4-10.2) mg/dL Total Bilirubin (0.2-1.3) mg/dL AST (14-36) U/L ALT (6-35) U/L Alkaline Phosphatase (38-126) U/L Total Protein (6.3-8.2) g/dL Albumin (3.5-5.1) g/dL TSH (Reflex) (0.465-4.68) uIU/mL Urine Color (Yellow) Urine Appearance (Clear) Urine pH (5.0-9.0) Ur Specific Shepherd (1.001-1.035) Urine Protein (Negative) mg/dL Urine Glucose (UA) (Negative) mg/dL Urine Ketones (Negative) mg/dL Ur Blood (Man) (Negative) Urine Nitrate (Negative) Urine Bilirubin (Negative) Urine Urobilinogen (<2.0) mg/dL Leukocyte Esterase Rfl (Negative) CHOLO/UL POC Urine HCG, Qual (Negative) Urine Opiates Screen (Negative) Urine Methadone Screen (Negative) Ur Barbiturates Screen (Negative) Ur Phencyclidine Scrn (Negative) Ur Amphetamine Screen (Negative) U Benzodiazepines Scrn (Negative) Urine Cocaine Screen (Negative) U Cannabinoids Screen (Negative) Ethyl Alcohol 78 (<10) mg/dL <Seamus Polanco MD - Last Filed: 08/18/24 18:51> Lab Results 08/18/24 08/18/24 08/18/24 Range/Units 13:07 13:15 15:14 WBC 8.1 (4.5-10.0) K/mm3 RBC 4.52 (4.2-5.4) M/mm3 Hgb 13.9 (12.0-15.0) g/dL Hct 42.8 (37.0-47.0) % MCV 94.7 (80-100) fl MCH 30.8 (26-34) pg MCHC 32.5 (32-36) g/dl RDW 13.0 (11.5-14.5) % Plt Count 299 (150-375) k/mm3 MPV 9.5 (7.4-10.4) fl Immature Gran % (Auto) 0.4 (0-0.5) % Neut % (Auto) 72.9 (45.5-73.1) % Lymph % (Auto) 20.3 (18.3-44.2) % Thurston % (Auto) 4.6 (2.6-8.5) % Eos % (Auto) 0.4 (0-4.4) % Baso % (Auto) 1.4 H (0.2-1.2) % Lymph # (Auto) 1.65 (0.9-3.2) K/mm3 Thurston # (Auto) 0.4 (0.1-0.6) K/mm3 Eos # (Auto) 0.0 (0-0.3) K/mm3 Baso # (Auto) 0.1 (0.0-0.1) K/mm3 Abs Immat Gran (auto) 0.03 (0.00-0.031) K/mm3 Absolute Neuts (auto) 5.9 (1.3-6.7) K/mm3 Absolute Nucleated RBC 0.000 (0.0-0.012) K/mm3 Nucleated RBC % 0.0 (0.0-0.2) % PT 12.7 (11.1-14.7) Seconds INR 1.0 APTT 21.5 L (22.3-36.8) Seconds Sodium 141 (137-145) mmol/L Potassium 4.0 (3.4-5.0) mmol/L Chloride 106 (98-107) mmol/L Carbon Dioxide 26 (22-30) mmol/L Anion Gap 9 (4-12) mmol/L BUN 17 (7-17) mg/dL Creatinine 0.90 (0.7-1.0) mg/dL Estim Creat Clear Calc 57 ml/min Estimated GFR > 60 (59 - ) Glucose 97 (65-110) mg/dL Calcium 8.7 (8.4-10.2) mg/dL Total Bilirubin 0.6 (0.2-1.3) mg/dL AST 39 H (14-36) U/L ALT 25 (6-35) U/L Alkaline Phosphatase 57 (38-126) U/L Total Protein 6.9 (6.3-8.2) g/dL Albumin 4.2 (3.5-5.1) g/dL TSH (Reflex) 0.568 (0.465-4.68) uIU/mL Urine Color Yellow (Yellow) Urine Appearance Clear (Clear) Urine pH 5.5 (5.0-9.0) Ur Specific Shepherd 1.011 (1.001-1.035) Urine Protein Negative (Negative) mg/dL Urine Glucose (UA) Negative (Negative) mg/dL Urine Ketones Negative (Negative) mg/dL Ur Blood (Man) Negative (Negative) Urine Nitrate Negative (Negative) Urine Bilirubin Negative (Negative) Urine Urobilinogen 0.2 (<2.0) mg/dL Leukocyte Esterase Rfl Negative (Negative) CHOLO/UL POC Urine HCG, Qual Negative (Negative) Urine Opiates Screen Negative (Negative) Urine Methadone Screen Negative (Negative) Ur Barbiturates Screen Negative (Negative) Ur Phencyclidine Scrn Negative (Negative) Ur Amphetamine Screen Negative (Negative) U Benzodiazepines Scrn Negative (Negative) Urine Cocaine Screen Negative (Negative) U Cannabinoids Screen Negative (Negative) Ethyl Alcohol 235 (<10) mg/dL 08/18/24 Range/Units 21:29 WBC (4.5-10.0) K/mm3 RBC (4.2-5.4) M/mm3 Hgb (12.0-15.0) g/dL Hct (37.0-47.0) % MCV (80-100) fl MCH (26-34) pg MCHC (32-36) g/dl RDW (11.5-14.5) % Plt Count (150-375) k/mm3 MPV (7.4-10.4) fl Immature Gran % (Auto) (0-0.5) % Neut % (Auto) (45.5-73.1) % Lymph % (Auto) (18.3-44.2) % Thurston % (Auto) (2.6-8.5) % Eos % (Auto) (0-4.4) % Baso % (Auto) (0.2-1.2) % Lymph # (Auto) (0.9-3.2) K/mm3 [place] # (Auto) (0.1-0.6) K/mm3 Eos # (Auto) (0-0.3) K/mm3 Baso # (Auto) (0.0-0.1) K/mm3 Abs Immat Gran (auto) (0.00-0.031) K/mm3 Absolute Neuts (auto) (1.3-6.7) K/mm3 Absolute Nucleated RBC (0.0-0.012) K/mm3 Nucleated RBC % (0.0-0.2) % PT (11.1-14.7) Seconds INR APTT (22.3-36.8) Seconds Sodium (137-145) mmol/L Potassium (3.4-5.0) mmol/L Chloride (98-107) mmol/L Carbon Dioxide (22-30) mmol/L Anion Gap (4-12) mmol/L BUN (7-17) mg/dL Creatinine (0.7-1.0) mg/dL Estim Creat Clear Calc ml/min Estimated GFR (59 - ) Glucose (65-110) mg/dL Calcium (8.4-10.2) mg/dL Total Bilirubin (0.2-1.3) mg/dL AST (14-36) U/L ALT (6-35) U/L Alkaline Phosphatase (38-126) U/L Total Protein (6.3-8.2) g/dL Albumin (3.5-5.1) g/dL TSH (Reflex) (0.465-4.68) uIU/mL Urine Color (Yellow) Urine Appearance (Clear) Urine pH (5.0-9.0) Ur Specific Shepherd (1.001-1.035) Urine Protein (Negative) mg/dL Urine Glucose (UA) (Negative) mg/dL Urine Ketones (Negative) mg/dL Ur Blood (Man) (Negative) Urine Nitrate (Negative) Urine Bilirubin (Negative) Urine Urobilinogen (<2.0) mg/dL Leukocyte Esterase Rfl (Negative) CHOLO/UL POC Urine HCG, Qual (Negative) Urine Opiates Screen (Negative) Urine Methadone Screen (Negative) Ur Barbiturates Screen (Negative) Ur Phencyclidine Scrn (Negative) Ur Amphetamine Screen (Negative) U Benzodiazepines Scrn (Negative) Urine Cocaine Screen (Negative) U Cannabinoids Screen (Negative) Ethyl Alcohol 78 (<10) mg/dL <Maya Virgen MD - Last Filed: 08/18/24 22:32> Restraint Face to Face Eval ED Reason for Restraint Aggressive/Violent <Seamus Polanco MD - Last Filed: 08/18/24 18:51> Evaluation Findings Date Seen by EDP: 08/18/24 <Seamus Polanco MD - Last Filed: 08/18/24 18:51> Time Seen by EDP: 16:50 <Seamus Polanco MD - Last Filed: 08/18/24 18:51> Pt's immediate situation:: Intoxicated violent fighting with staff. <Seamus Polanco MD - Last Filed: 08/18/24 18:51> Pt's reaction to intervention:: Would not deescalate with verbal cues. <Seamus Polanco MD - Last Filed: 08/18/24 18:51> Pt's med/behavioral condition:: Placed in four-point lock will restraints <Seamus Polanco MD - Last Filed: 08/18/24 18:51> Restraint or Seclusion Need Need to continue or terminate:: Patient continued to need restraint as well as Ativan for aggressiveness. Was able to come out of 1 restraint at 1845. <Seamus Polanco MD - Last Filed: 08/18/24 18:51> Discharge Plan Discharge Clinical Impression: Alcohol intoxication <Seamus Polanco MD - Last Filed: 08/18/24 18:51> Patient Disposition: Home <Seamus Polanco MD - Last Filed: 08/18/24 18:51> Condition: Improved <Seamus Polanco MD - Last Filed: 08/18/24 18:51> Instructions: Antibiotic Form, Abuse of Alcohol (DC) <Seamus Polanco MD - Last Filed: 08/18/24 18:51> Additional Instructions: Please follow-up with your family doctor within the next 3-5 days. Return to emergency department if any new or worsening symptoms develop. <Seamus Polanco MD - Last Filed: 08/18/24 18:51> Patient Language: [place] <Seamus Polanco MD - Last Filed: 08/18/24 18:51> Prescriptions: No Action ropinirole 1 mg tablet 1 mg PO HS amitriptyline 50 mg tablet 100 mg PO HS zolpidem 10 mg tablet 10 mg PO HS escitalopram oxalate 20 mg tablet 20 mg PO DAILY buprenorphine 10 mcg/hour patch weekly 10 mcg transdermal WEEKLY <Seamus Polanco MD - Last Filed: 08/18/24 18:51> Follow-up/Referrals: Eliseo Leslie MD [Primary Care Provider] - 3 Days <Seamus Polanco MD - Last Filed: 08/18/24 18:51> Time of Disposition: 22:30 <Seamus Polanco MD - Last Filed: 08/18/24 18:51> 22:30 <Maya Virgen MD - Last Filed: 08/18/24 22:32>
[2024-08-18 15:04] LABS: Partial Thromboplastin Time 21.5 Seconds (22.3-36.8)
--- NOTE | 2024-08-18 15:20 | PC.NURSE ---
pt screaming at the top of her lungs and attempting to hit staff
[2024-08-18 15:25] LABS: Hematocrit 42.8 % (37.0-47.0); Hemoglobin 13.9 g/dL (12.0-15.0); Immature Granulocyte Percent A 0.4 % (0-0.5); Lymphocytes Absolute Auto 1.65 K/mm3 (0.9-3.2); Mean Corpuscular HGB Conc 32.5 g/dl (32-36); Mean Corpuscular Hemoglobin 30.8 pg (26-34); Mean Corpuscular Volume 94.7 fl (80-100); Nucleated Red Blood Cells Absolute Auto 0.000 K/mm3 (0.0-0.012); Nucleated Red Blood Cells Perc 0.0 % (0.0-0.2); Platelet Count Result 299 k/mm3 (150-375); Red Blood Count 4.52 M/mm3 (4.2-5.4); White Blood Count 8.1 K/mm3 (4.5-10.0)
[2024-08-18] MEDS: LORazepam INJ (*CRX) 2 MG/ML VIAL 1 MG IV PUSH ×2 (15:25→16:37)
[2024-08-18 16:14] LABS: Thyroid Stimulating Hormone Reflex 0.568 uIU/mL (0.465-4.68)
--- NOTE | 2024-08-18 16:23 | PC.NURSE ---
attempted to put pt on bedpan while in restraints. pt said she would rather pee in the bed then use a bed rivera. this RN educated pt on why she cannot use the restroom due to her violent behavior
--- NOTE | 2024-08-18 16:23 | PC.NURSE ---
pt appeared calm. this RN attempted to remove an arm from the restraint, pt began screaming at this RN saying your a fucking bitch I'm going to find out who you are and I'm going to haunt you in the after life the pt attempted to bite this RN. pt restraint was not removed
--- NOTE | 2024-08-18 16:40 | PC.NURSE ---
another RN called pt per pt request. pt , Arthur, at this time and he said he will be up here in 20 minuets.
--- NOTE | 2024-08-18 16:59 | PC.NURSE ---
pt still screaming at the top of her lungs in her room. pt has her light off for nonpharmacologic measures with a pillow and blanket. pt is still screaming at the top of her lungs
[2024-08-18 17:24] LABS: Cannabinoid Screen Urine Negative (Negative)
--- NOTE | 2024-08-18 19:17 | PC.NURSE ---
pt was taken out of her L wrist restraint at this time. pt is cooperating at this time. pt is also wanting to go to the bathroom but refuses to use the bedpan an this RN believes the pt will be a danger to others if she is to get out of the bed
[2024-08-18] MEDS: ACETAMINOPHEN 500 MG TABLET 1000 MG PO (20:14)
--- NOTE | 2024-08-18 20:19 | PC.NURSE ---
Locked restraints removed at 19:40. Pt provided with clean gown, clean blanket. Pt refused for this RN to change sheets. Pt requested Tylenol, notified, verbal order recieved. Pt provided with sandwich, Pepsi and pretzels. Pt calm and cooperative at this time.
== END 2024-08-18 22:49 | disposition home or self-care (01) ==
PROVIDERS: Emergency Medicine; Emergency Provider Emergency Medicine; PCP Emergency Medicine
DX: F10.129 Alcohol abuse with intoxication, unspecified (principal); G25.81 Restless legs syndrome; F32.A Depression, unspecified; Y90.7 Blood alcohol level of 200-239 mg/100 ml; Z79.899 Other long term (current) drug therapy
CPT/HCPCS: 36415; 80053; 80307; 81003; 81025; 82077; 84443; 85025; 85610; 85730; 96374; 96376; 99284; A9270; J2060

== ENCOUNTER 2024-09-28 15:37 | Outpatient (CLI) | payer OTHER, SELFPAY ==
--- NOTE | ~2024-09-28 | MM_ITS ---
EXAMINATION: MM screening [facility] BI w [facility] HISTORY: Screening mammogram TECHNIQUE: Craniocaudal and mediolateral oblique 3-D tomosynthesis images were obtained and synthetic 2-D images were generated. CAD analysis was submitted and interpreted. COMPARISON: 09/27/2023, 09/05/2022, 11/15/2020 BREAST PARENCHYMAL COMPOSITION:Not Dense. There are scattered areas of fibroglandular density. FINDINGS: No suspicious mass, calcification, or architectural distortion are identified in either breast to suggest malignancy. There has been no suspicious interval change. IMPRESSION: No mammographic evidence of malignancy. Recommend routine screening mammography in one year. BI-RADS Category 1: Negative Reviewed, dictated and finalized at location .
== END 2024-09-28 15:38 | disposition home or self-care (01) ==
DX: Z12.31 Encounter for screening mammogram for malignant neoplasm of breast (principal)
CPT/HCPCS: 77063; 77067

== ENCOUNTER 2024-12-07 22:20 | Emergency (ER) | payer OTHER, SELFPAY ==
--- NOTE | ~2024-12-07 | CT_ITS ---
CT HEAD NON-CONTRAST CT C-SPINE Clinical History: fall Comparison: None Technique: Unenhanced axial images skull base to vertex. Coronal, sagittal reformats. Axial images thoracic inlet to skull base. Sagittal and coronal reformats. CT images acquired with automatic exposure control for dose reduction DLP: 681 mGy-cm Findings: Head: Sulci, ventricles: Unremarkable. No intracerebral hemorrhage. No evidence acute territorial infarct. No mass effect, midline shift, intra-/extra-axial fluid collection. Bony calvarium intact. Visualized paranasal sinuses: Clear. Mastoid air cells: Clear. C-spine: No acute fracture. Grade 1 retrolisthesis C4 on 5. Vertebral bodies normal height and alignment. Moderate degenerative changes. Prevertebral soft tissues within normal limits. T2 hemangioma. Visualized lung apices: Clear. Visualized thyroid: Unremarkable. No enlarged cervical nodes. IMPRESSION: HEAD: 1. No acute intracranial findings. C-SPINE: 1. No acute fracture. Reviewed, dictated and finalized at location R. IMPRESSION: HEAD: 1. No acute intracranial findings. C-SPINE: 1. No acute fracture.
[2024-12-07 22:19] VITALS: BP 138/95; PULSE 113; RESP 20; TEMP 36.5; O2SAT 100
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
[2024-12-07] MEDS: ACETAMINOPHEN 325 MG TABLET 650 MG PO (23:55)
[2024-12-08 00:01] VITALS: BP 135/83; PULSE 103; RESP 18; O2SAT 99
[2024-12-08 00:15] VITALS: BP 135/83; PULSE 99; RESP 16; O2SAT 99
[2024-12-08 00:30] VITALS: BP 146/85; PULSE 113; RESP 15; O2SAT 99
[2024-12-08 00:45] VITALS: BP 143/86; PULSE 107; RESP 17; O2SAT 98
[2024-12-08 00:47] LABS: Salicylate 5.0 mg/dL (2-20)
[2024-12-08 01:00] VITALS: BP 138/82; PULSE 99; RESP 13; O2SAT 100
[2024-12-08 03:13] VITALS: BP 142/88; PULSE 89; RESP 22; TEMP 36.6; O2SAT 98
[2024-12-08 03:43] LABS: Cannabinoid Screen Urine Negative (Negative)
== END 2024-12-08 03:19 ==
DX: F10.10 Alcohol abuse, uncomplicated (principal); Z71.51 Drug abuse counseling and surveillance of drug abuser; Y90.0 Blood alcohol level of less than 20 mg/100 ml
CPT/HCPCS: 36415; 70450; 72125; 80179; 80307; 82077; 99284; A9270